=== PATIENT | female | born 1960 | race Caucasian/White ===

== ENCOUNTER 2017-10-19 07:05 | Day surgery (SDC) | payer OTHER ==
[2017-10-19] MEDS ORDERED: Lactated Ringer's 1,000 ML IV ONE (07:49)
[2017-10-19] MEDS ORDERED: Propofol 10 mg/ml Inj (20 ML) ONE (08:03)
[2017-10-19] MEDS ORDERED: Lidocaine 2% MPF (5 ml) Inj ONE (08:04)
[2017-10-19 09:11] VITALS: O2SAT 97
[2017-10-19 09:32] VITALS: BP 91/58; PULSE 71; RESP 14; TEMP 98
== END 2017-10-19 09:58 | disposition home or self-care (01) ==
LOC: H.ENDO 07:05
PROVIDERS: ATTEND Internal Medicine Gastroenterology
DX: R10.13 Epigastric pain (principal); E03.9 Hypothyroidism, unspecified; I10 Essential (primary) hypertension; K64.8 Other hemorrhoids; K44.9 Diaphragmatic hernia without obstruction or gangrene; K29.50 Unspecified chronic gastritis without bleeding; K30 Functional dyspepsia
CPT/HCPCS: 43239; 45378; 88305; J2704; J7120

== ENCOUNTER 2017-12-05 12:31 | Emergency (ER) | payer OTHER ==
[2017-12-05 12:46] VITALS: RESP 18; TEMP 99
--- NOTE | 2017-12-05 14:05 | ED PDOC ---
HPI: Chest Pain Time Seen by Provider: 12/05/17 12:48 Chief Complaint (Nursing): Chest Pain History Per: Patient History/Exam Limitations: no limitations Onset/Duration Of Symptoms: Days Current Symptoms Are (Timing): Still Present Modifying Factors: None Exacerbating Factors: Deep Breathing Additional Complaint(s): Rachell Lyon is a 57 year old female, whose past medical history includes HTN, hypercholesterolemia, anemia, and hypothyroidism, who presents to the emergency department complaining of left sided chest pain that radiates to left shoulder since 1 week. Patient reports the pain is worse with deep breathing or left shoulder movement. She notes taking Tylenol and having surgery for ovarian cyst removal and bowel. She was discharged from the hospital one month ago . Patient denies fever, cough, shortness of breath, extremity swelling, or other complaints. Past Medical History Reviewed: Historical Data, Nursing Documentation, Vital Signs Vital Signs: Last Vital Signs Temp 99.0 F 12/05/17 12:43 Pulse 102 H 12/06/17 07:12 Resp 18 12/05/17 18:57 BP 123/78 12/05/17 18:57 Pulse Ox 99 12/06/17 07:12 - Medical History PMH: Anemia, HTN, Hypercholesterolemia, Hyperthyroidism, Hypothyroidism - Surgical History Surgical History: No Surg Hx - Family History Family History: States: Unknown Family Hx - Home Medications Home Medications: Ambulatory Orders Medication Instructions Recorded Losartan [Cozaar] 1 tab PO DAILY 10/19/17 - Allergies Allergies/Adverse Reactions: Allergies Allergy/AdvReac Type Severity Reaction Status Date / Time No Known Allergies Allergy Verified 10/19/17 07:56 KIMANI Risk Score for UA/NSTEMI - KIMANI Risk Score Age > 64: NO 3 or more CAD Risk Factors: NO Known CAD (Stenosis greater than 50%): NO Aspirin use in past 7 days: NO Severe Angina: NO EKG ST changes greater than 0.5mm: NO Positive Cardiac Marker: NO KIMANI Score: 0 Risk %: 5% Wells Criteria for PE - Wells Criteria for Pulmonary Embolism Clinical Signs and Symptoms of DVT: No P.E is #1 Diagnosis, or Equally Likely: No Heart Rate >100: Yes Immobilization at least 3 days;Surgery previous 4 weeks: No Previous, objectively diagnosed PE or DVT: No Hemoptysis: No Malignancy w/treatment within 6 months, or palliative: No Total Score: 1.5 Review of Systems ROS Statement: Except As Marked, All Systems Reviewed And Found Negative Constitutional: Negative for: Fever ENT: Negative for: Throat Swelling Cardiovascular: Positive for: Chest Pain Respiratory: Negative for: Cough, Shortness of Breath Gastrointestinal: Negative for: Vomiting Genitourinary Female: Negative for: Dysuria Musculoskeletal: Positive for: Shoulder Pain (left shoulder pain) Skin: Negative for: Rash Neurological: Negative for: Numbness, Dizziness Physical Exam - Reviewed Nursing Documentation Reviewed: Yes Vital Signs Reviewed: Yes - Physical Exam Appears: Positive for: Well, Non-toxic, No Acute Distress Head Exam: Positive for: ATRAUMATIC, NORMAL INSPECTION, NORMOCEPHALIC Skin: Positive for: Normal Color, Warm, DRY Eye Exam: Positive for: EOMI, Normal appearance, PERRL Cardiovascular/Chest: Positive for: Regular Rate, Rhythm. Negative for: Chest Non Tender (chest wall tenderness on palpation ), Murmur Respiratory: Positive for: Normal Breath Sounds. Negative for: Crackles, Rales , Rhonchi Gastrointestinal/Abdominal: Positive for: Normal Exam, Bowel Sounds, Soft Extremity: Positive for: Normal ROM, Tenderness (left shoulder tenderness). 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 Differential Diagnosis included but are not limited to: ACS vs. musculoskeletal vs. pulmonary embolism vs. arthritis Plan: -- EKG -- CXR -- Labs -- Reassess and disposition Progress Notes: 190 EXAM: CT Angiography Chest With Intravenous Contrast EXAM DATE/TIME: 12/05/2017 5:15 PM CLINICAL HISTORY: 57 years old, female; Pain; Chest pain; Left-sided chest pain; Additional info: Chest pain. Sent phy. Doc. TECHNIQUE: Axial computed tomographic angiography images of the chest with intravenous contrast using pulmonary embolism protocol. All CT scans at this facility use one or more dose reduction techniques, viz.: automated exposure control; ma/kV adjustment per patient size (including targeted exams where dose is matched to indication; i.e. head); or iterative reconstruction technique. MIP reconstructed images were created and reviewed. Coronal and sagittal reformatted images were created and reviewed. CONTRAST: 80 mL of [id number] administered intravenously. COMPARISON: There are no prior studies for comparison. FINDINGS: Lungs and pleural spaces: Trachea and main bronchi are patent.There is no pneumothorax. There is a focal pleural scarring bilaterally. There is dependent atelectasis bilaterally. There is scarring at the lung bases. There is an indeterminate 1.9 mm peripheral right middle lobe nodular opacity. There is a 4.6 mm right middle lobe nodule. There is a right middle lobe granuloma. There is no lobar or segmental consolidation. There are no effusions. Heart, aorta and pulmonary arteries: Heart size is at the upper limits of normal.There is trace fluid in pericardial recesses.There is no aneurysm or dissection.There are vascular calcifications. There are no pulmonary emboli. Mediastinum: The esophagus is unremarkable. There are no pathologically enlarged mediastinal or hilar nodes. Thyroid: Thyroid is not optimally demonstrated. Bones/joints: There are no acute osseous abnormalities. There is minimal spondylosis. Soft tissues: unremarkable Upper abdomen: There are no acute abnormalities in the visualized portion of the abdomen.There are multiple low attenuation lesions in the liver. Largest are consistent with cysts. Smaller lesions are too small to characterize. IMPRESSION: No aneurysm, dissection or pulmonary embolus, no focal pneumonia; prior granulomatous disease; indeterminate right middle lobe nodules Pulmonary nodules: For low-risk patients, no follow-up is necessary. For high- risk patients (smoking history or other known risk factors) an optional chest CT at 12 months could be performed. Scribe Attestation: Documented by Suri Maurer Attestation: All medical record entries made by the [employer] were at my direction and personally dictated by me. I have reviewed the chart and agree that the record accurately reflects my personal performance of the history, physical exam, medical decision making, and the department course for this patient. I have also personally directed, reviewed, and agree with the discharge instructions and disposition. Disposition - Clinical Impression Clinical Impression: Chest pain, Shoulder pain, Pulmonary nodule - Patient ED Disposition Is Patient to be Admitted: No Doctor Will See Patient In The: Office Counseled Patient/Family Regarding: Studies Performed, Diagnosis, Need For Followup - Disposition Referrals: [facility] [Outside] Disposition: Routine/Home Disposition Time: 19:00 Condition: GOOD Additional Instructions: Follow up with your PCP in 2-3 days. Return for worsening. Take motrin for pain. Instructions: Chest Pain, Pulmonary Nodule Print Language: GIBRALTARIAN
[2017-12-05 14:06] LABS: BASO % 0.9 % (0.0-2.0); EOS % 1.1 % (0.0-4.0); HEMOGLOBIN 10.9 g/dL (12.0-16.0); LYMPH # 1.1 K/uL (1.0-4.3); LYMPH % 27.2 % (20.0-40.0); MEAN CELL VOLUME 79.7 fl (81.0-99.0); MEAN CORPUSCULAR HEMOGLOBIN 25.4 pg (27.0-31.0); MEAN CORPUSCULAR HGB CONC 31.9 g/dL (33.0-37.0); MEAN PLATELET VOLUME 7.7 fl (7.2-11.7); MONO # 0.4 K/uL (0.0-0.8); MONO % 11.2 % (0.0-10.0); NEUT # 2.4 K/uL (1.8-7.0); NEUT % 59.6 % (50.0-75.0); NRBC % 0.4 % (0.0-0.0); RBC 4.3 Mil/uL (3.80-5.20); RED CELL DISTRIBUTION WIDTH 15.6 % (11.5-14.5)
[2017-12-05 14:15] LABS: CALCIUM 9.3 mg/dL (8.4-10.2); GFR AFRICAN-AMERICAN > 60; GFR NON-AFRICAN AMERICAN > 60
[2017-12-05 14:18] LABS: PARTIAL THROMBOPLASTIN TIME 27.1 Seconds (25.6-37.1); PROTHROMBIN TIME 11.2 Seconds (9.8-13.1)
[2017-12-05 14:27] LABS: BLOOD UREA NITROGEN 15 mg/dl (7-17)
[2017-12-05] MEDS ORDERED: Iodixanol 320 MG/ML 100 ML BOTTLE IV ONE (17:38)
[2017-12-05] MEDS ORDERED: Sodium Chloride 0.9% 100 ML ONE (17:38)
--- NOTE | 2017-12-05 17:44 | RAD ---
HISTORY: chest pain COMPARISON: No prior. TECHNIQUE: Chest PA and lateral FINDINGS: LUNGS: No active pulmonary disease. PLEURA: No significant pleural effusion identified. No pneumothorax apparent. CARDIOVASCULAR: Upper limits normal cardiac silhouette. No pulmonary derangement identified. OSSEOUS STRUCTURES: No significant abnormalities. VISUALIZED UPPER ABDOMEN: Normal. OTHER FINDINGS: None. IMPRESSION: Upper limits normal cardiac size. No pulmonary vascular derangement. No acute infiltrate, pleural effusion or pneumothorax identified.
[2017-12-05 18:58] VITALS: BP 123/78
--- NOTE | 2017-12-05 19:09 | CT ---
EXAM: CT Angiography Chest With Intravenous Contrast EXAM DATE/TIME: 12/05/2017 5:15 PM CLINICAL HISTORY: 57 years old, female; Pain; Chest pain; Left-sided chest pain; Additional info: Chest pain. Sent phy. Doc. TECHNIQUE: Axial computed tomographic angiography images of the chest with intravenous contrast using pulmonary embolism protocol. All CT scans at this facility use one or more dose reduction techniques, viz.: automated exposure control; ma/kV adjustment per patient size (including targeted exams where dose is matched to indication; i.e. head); or iterative reconstruction technique. MIP reconstructed images were created and reviewed. Coronal and sagittal reformatted images were created and reviewed. CONTRAST: 80 mL of administered intravenously. COMPARISON: There are no prior studies for comparison. FINDINGS: Lungs and pleural spaces: Trachea and main bronchi are patent.There is no pneumothorax. There is a focal pleural scarring bilaterally. There is dependent atelectasis bilaterally. There is scarring at the lung bases. There is an indeterminate 1.9 mm peripheral right middle lobe nodular opacity. There is a 4.6 mm right middle lobe nodule. There is a right middle lobe granuloma. There is no lobar or segmental consolidation. There are no effusions. Heart, aorta and pulmonary arteries: Heart size is at the upper limits of normal.There is trace fluid in pericardial recesses.There is no aneurysm or dissection.There are vascular calcifications. There are no pulmonary emboli. Mediastinum: The esophagus is unremarkable. There are no pathologically enlarged mediastinal or hilar nodes. Thyroid: Thyroid is not optimally demonstrated. Bones/joints: There are no acute osseous abnormalities. There is minimal spondylosis. Soft tissues: unremarkable Upper abdomen: There are no acute abnormalities in the visualized portion of the abdomen.There are multiple low attenuation lesions in the liver. Largest are consistent with cysts. Smaller lesions are too small to characterize. IMPRESSION: No aneurysm, dissection or pulmonary embolus, no focal pneumonia; prior granulomatous disease; indeterminate right middle lobe nodules Pulmonary nodules: For low-risk patients, no follow-up is necessary. For high-risk patients (smoking history or other known risk factors) an optional chest CT at 12 months could be performed.
[2017-12-05 19:13] VITALS: PULSE 102; O2SAT 99
--- NOTE | 2017-12-06 14:55 | CARD ---
APPROVED REPORT EKG Measurement Heart [id number] <Conclusion> Sinus tachycardia Nonspecific ST and T wave abnormality Abnormal ECG
== END 2017-12-05 19:20 | disposition home or self-care (01) ==
LOC: H.ER 12:31
DX: R07.89 Other chest pain (principal); M25.512 Pain in left shoulder; D64.9 Anemia, unspecified; E03.9 Hypothyroidism, unspecified; E05.90 Thyrotoxicosis, unspecified without thyrotoxic crisis or storm; E78.00 Pure hypercholesterolemia, unspecified; I10 Essential (primary) hypertension
CPT/HCPCS: 71046; 71275; 80048; 84484; 85025; 85378; 85610; 85730; 93005; 99285; Q9967

== ENCOUNTER 2018-01-05 12:20 | Emergency (ER) | payer OTHER ==
[2018-01-05 12:41] VITALS: RESP 18; TEMP 98; O2SAT 98
--- NOTE | 2018-01-05 15:50 | ED PDOC ---
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 Pt had laser ovarian cyst removal on 10/29/17 and iatrogenic perforation of bowel with subsequent bowel anastomosis. Denies fever, nausea, vomiting, constipation, diarrhea. Last BM this AM. Past Medical History Reviewed: Nursing Documentation, Vital Signs Vital Signs: Last Vital Signs Temp 98 F 01/05/18 12:37 Pulse 92 H 01/05/18 12:37 Resp 18 01/05/18 12:37 BP 137/80 01/05/18 12:37 Pulse Ox 98 01/05/18 12:37 - Medical History PMH: Anemia, HTN, Hypercholesterolemia, Hyperthyroidism, Hypothyroidism - Surgical History Other surgeries: Ovarian cyst removel, bowel anastomosis - Family History Family History: States: Unknown Family Hx - Social History Current smoker - smoking cessation education provided: No Alcohol: None - Home Medications Home Medications: Ambulatory Orders Medication Instructions Recorded Losartan [Cozaar] 1 tab PO DAILY 10/19/17 - Allergies Allergies/Adverse Reactions: Allergies Allergy/AdvReac Type Severity Reaction Status Date / Time No Known Allergies Allergy Verified 10/19/17 07:56 Review of Systems Constitutional: Negative for: Fever, Chills Cardiovascular: Negative for: Chest Pain, Palpitations Respiratory: Negative for: Cough, Shortness of Breath Gastrointestinal: Positive for: Abdominal Pain. Negative for: Nausea, Vomiting , Diarrhea, Hematochezia, Hematemesis Genitourinary Female: Negative for: Dysuria, Hematuria, Vaginal Discharge, Vaginal Bleeding Musculoskeletal: Negative for: Neck Pain, Back Pain Skin: Negative for: Rash, Lesions Neurological: Negative for: Headache Physical Exam - Reviewed Nursing Documentation Reviewed: Yes Vital Signs Reviewed: Yes - Physical Exam Appears: Positive for: Well, No Acute Distress Head Exam: Positive for: ATRAUMATIC, NORMAL INSPECTION Skin: Positive for: Normal Color, Warm, Dry Eye Exam: Positive for: Normal appearance, EOMI, PERRL Cardiovascular/Chest: Positive for: Regular Rate, Rhythm Respiratory: Positive for: Normal Breath Sounds Gastrointestinal/Abdominal: Positive for: Bowel Sounds, Soft, Tenderness ( Supraumbilical tenderness, vertical incision C/D/I). Negative for: Distended, Guarding, Rebound Back: Positive for: Normal Inspection. Negative for: L CVA Tenderness, R CVA Tenderness Extremity: Positive for: Normal ROM Neurologic/Psych: Positive for: Alert, Oriented - ECG O2 Sat by Pulse Oximetry: 98 Medical Decision Making Medical Decision Makin yo female with abdominal pain. - labs - EKG - CT abd/pelvis - Morphine Disposition - Disposition
[2018-01-05 16:20] LABS: BASO % 0.6 % (0.0-2.0); HEMOGLOBIN 11.7 g/dL (12.0-16.0); LYMPH # 1.6 K/uL (1.0-4.3); LYMPH % 36.6 % (20.0-40.0); MEAN CELL VOLUME 79.5 fl (81.0-99.0); MEAN CORPUSCULAR HEMOGLOBIN 25.8 pg (27.0-31.0); MEAN CORPUSCULAR HGB CONC 32.5 g/dL (33.0-37.0); MEAN PLATELET VOLUME 7.7 fl (7.2-11.7); MONO # 0.4 K/uL (0.0-0.8); MONO % 7.8 % (0.0-10.0); NEUT # 2.4 K/uL (1.8-7.0); NRBC % 0.3 % (0.0-0.0); RBC 4.52 Mil/uL (3.80-5.20); RED CELL DISTRIBUTION WIDTH 15.9 % (11.5-14.5); WHITE BLOOD COUNT 4.5 K/uL (4.8-10.8)
[2018-01-05 16:30] LABS: ALBUMIN 4.1 g/dL (3.5-5.0); ALT/SGPT 39 U/L (9-52); AST/SGOT 33 U/L (14-36); BLOOD UREA NITROGEN 11 mg/dl (7-17); CALCIUM 9.5 mg/dL (8.4-10.2); GFR AFRICAN-AMERICAN > 60; GFR NON-AFRICAN AMERICAN > 60; LIPASE 106 U/L (23-300)
[2018-01-05] MEDS ORDERED: Sodium Chloride 0.9% 100 ML ONE (16:41)
[2018-01-05] MEDS ORDERED: Iohexol 300 100 ML IJ ONE (16:41)
[2018-01-05 17:00] LABS: URINE BILIRUBIN NEGATIVE (NEGATIVE); URINE BLOOD NEGATIVE (NEGATIVE); URINE CLARITY CLEAR (Clear); URINE COLOR STRAW (YELLOW); URINE GLUCOSE (UA) NEG (Normal); URINE LEUKOCYTE ESTERASE NEG Leu/uL (Negative); URINE PROTEIN NEGATIVE (NEGATIVE); URINE UROBILINOGEN 0.2-1.0 mg/dL (0.2-1.0)
--- NOTE | 2018-01-05 17:07 | ED PDOC ---
- Laboratory Results Result Diagrams: 01/05/18 16:15 01/05/18 16:15 - ECG O2 Sat by Pulse Oximetry: 98 (RA) Pulse Ox Interpretation: Normal Medical Decision Making Medical Decision Making: Time: 17:00 Patient was signed out to me by Dr. Ziegler, pending CT Absomen/Pelvis and labs. 17:38 CT Abdomen/Pelvis: FINDINGS: LOWER THORAX: Fibrotic changes again seen the left base with images stable compared to prior enhanced chest CT 12/05/2017. LIVER: Multiple scattered lucencies are stable throughout the liver without prominent enhancement. The majority are likely marketing sales representative of cysts however other numerous foci too small to characterize. GALLBLADDER AND BILE DUCTS: Unremarkable. PANCREAS: Unremarkable. No gross lesion or ductal dilatation. SPLEEN: Unremarkable. ADRENALS: Unremarkable. No mass. KIDNEYS AND URETERS: Unremarkable. No hydronephrosis. No solid mass. VASCULATURE: Unremarkable. No aortic aneurysm. BOWEL: Stomach is distended with mild volume of fluid there is no bowel obstruction. Postop changes in the right lower quadrant abdomen status post segmental distal small-bowel resection. Local postop changes may be present here. There is a small thick-walled structure which may represent a segment small bowel however appears tendon a blind loop. It measures 4.0 x 1.8 cm in its superior anterior to the anastomotic site from the prior surgery. A small abscess here is not excluded however if the prior surgery was in the distant past than this may represents an inflamed small bowel segment. There are additional small bowel loops with thickened wall seen in the left lower quadrant in segmental enteritis is questioned. Clinically correlate further. No free intraperitoneal gas or ascites. APPENDIX: Not identified. PERITONEUM: Unremarkable. No free fluid. No free air. LYMPH NODES: Unremarkable. No enlarged lymph nodes. BLADDER: Unremarkable. REPRODUCTIVE: UnremarkableA 3.3 x 2.2 cm right adnexal cyst is identified. . BONES: No acute fracture. OTHER FINDINGS: Tiny umbilical hernia containing only fat. No reactive changes are associated with the fat. IMPRESSION: Findings most compatible with poor likely segmental enteritis affecting small- bowel loops primarily at the left lower quadrant. Pain status post prior segmental small bowel resection at the right lower quadrant with a small abscess or possible infected blind loop appreciated enter superior to the anastomotic site. Local reactive changes or postoperative changes identified at the operative site. Clinically correlate as to the timing of the surgery with the more distant surgery likely reflecting reflected blind loop rather than abscess. Other lesser findings as discussed above. I spoke with radiologist who read this report of CT scan and believes that its post surgical changes, nothing acute other than enteritis. pt given cipor and flagyl rx and stable for dc. pt currently feels better, in no distress. stable for dc and outpt follow up. pt agreeablet o plan. Scribe Attestation: Documented by Emperatriz Fuller acting as a scribe for Ceci Carmona MD. Scribe Attestation: All medical record entries made by the Scribe were at my direction and personally dictated by me. I have reviewed the chart and agree that the record accurately reflects my personal performance of the history, physical exam, medical decision making, and the department course for this patient. I have also personally directed, reviewed, and agree with the discharge instructions and disposition. Disposition Counseled Patient/Family Regarding: Studies Performed, Diagnosis, Need For Followup - Clinical Impression Clinical Impression: Abdominal pain, Enteritis - POA Present On Arrival: None - Disposition Referrals: [facility] [Outside] [facility] [Outside] Disposition: Routine/Home Disposition Time: 17:25 Condition: IMPROVED Additional Instructions: follow up with your primary surgeon in 1-2 days for reevaluation return to the ED with any worsening or concerning symptoms Prescriptions: Ciprofloxacin HCl [Cipro] 500 mg PO BID #20 tab Metronidazole [Flagyl] 500 mg PO TID #30 tablet Instructions: Acute Abdomen (Belly Pain), Adult (DC) Forms: [employer] (Arabic) Print Language: MALTESE
[2018-01-05 17:19] LABS: PARTIAL THROMBOPLASTIN TIME 28.9 Seconds (25.6-37.1); PROTHROMBIN TIME 10.8 Seconds (9.8-13.1)
--- NOTE | 2018-01-05 17:39 | CT ---
PROCEDURE: CT Abdomen and Pelvis with contrast HISTORY: Supraumbilical pain COMPARISON: None. TECHNIQUE: Contrast dose: Omnipaque 300, 90 cc Radiation dose: Total exam DLP = 602.27 mGy-cm. This CT exam was performed using one or more of the following dose reduction techniques: Automated exposure control, adjustment of the mA and/or kV according to patient size, and/or use of iterative reconstruction technique. FINDINGS: LOWER THORAX: Fibrotic changes again seen the left base with images stable compared to prior enhanced chest CT 12/05/2017. LIVER: Multiple scattered lucencies are stable throughout the liver without prominent enhancement. The majority are likely floor representative of cysts however other numerous foci too small to characterize. GALLBLADDER AND BILE DUCTS: Unremarkable. PANCREAS: Unremarkable. No gross lesion or ductal dilatation. SPLEEN: Unremarkable. ADRENALS: Unremarkable. No mass. KIDNEYS AND URETERS: Unremarkable. No hydronephrosis. No solid mass. VASCULATURE: Unremarkable. No aortic aneurysm. BOWEL: Stomach is distended with mild volume of fluid there is no bowel obstruction. Postop changes in the right lower quadrant abdomen status post segmental distal small-bowel resection. Local postop changes may be present here. There is a small thick-walled structure which may represent a segment small bowel however appears tendon a blind loop. It measures 4.0 x 1.8 cm in its superior anterior to the anastomotic site from the prior surgery. A small abscess here is not excluded however if the prior surgery was in the distant past than this may represents an inflamed small bowel segment. There are additional small bowel loops with thickened wall seen in the left lower quadrant in segmental enteritis is questioned. Clinically correlate further. No free intraperitoneal gas or ascites. APPENDIX: Not identified. PERITONEUM: Unremarkable. No free fluid. No free air. LYMPH NODES: Unremarkable. No enlarged lymph nodes. BLADDER: Unremarkable. REPRODUCTIVE: UnremarkableA 3.3 x 2.2 cm right adnexal cyst is identified. . BONES: No acute fracture. OTHER FINDINGS: Tiny umbilical hernia containing only fat. No reactive changes are associated with the fat. IMPRESSION: Findings most compatible with poor likely segmental enteritis affecting small-bowel loops primarily at the left lower quadrant. Pain status post prior segmental small bowel resection at the right lower quadrant with a small abscess or possible infected blind loop appreciated enter superior to the anastomotic site. Local reactive changes or postoperative changes identified at the operative site. Clinically correlate as to the timing of the surgery with the more distant surgery likely reflecting reflected blind loop rather than abscess. Other lesser findings as discussed above.
[2018-01-05 19:27] VITALS: BP 125/86; PULSE 78
--- NOTE | 2018-01-06 19:44 | CARD ---
APPROVED REPORT EKG Measurement Heart [id number] <Conclusion> Normal sinus rhythm Normal ECG
== END 2018-01-05 19:10 | disposition home or self-care (01) ==
LOC: H.ER 12:20
DX: K52.9 Noninfective gastroenteritis and colitis, unspecified (principal); R10.9 Unspecified abdominal pain; E05.90 Thyrotoxicosis, unspecified without thyrotoxic crisis or storm; I10 Essential (primary) hypertension; E78.00 Pure hypercholesterolemia, unspecified; E03.9 Hypothyroidism, unspecified
CPT/HCPCS: 74177; 80053; 81003; 83690; 85025; 85610; 85730; 93005; 99284; Q9967

== ENCOUNTER 2018-02-12 19:16 | Inpatient (IN) | payer OTHER ==
[2018-02-12] MEDS ORDERED: Iohexol 240 (50 ml) PO ONE (20:58)
[2018-02-12 21:25] LABS: BASO % 0.4 % (0.0-2.0); EOS % 0.1 % (0.0-4.0); HEMOGLOBIN 13.2 g/dL (12.0-16.0); LYMPH # 0.9 K/uL (1.0-4.3); LYMPH % 11.7 % (20.0-40.0); MEAN CELL VOLUME 78.8 fl (81.0-99.0); MEAN CORPUSCULAR HEMOGLOBIN 25.5 pg (27.0-31.0); MEAN CORPUSCULAR HGB CONC 32.3 g/dL (33.0-37.0); MEAN PLATELET VOLUME 8.1 fl (7.2-11.7); MONO # 0.3 K/uL (0.0-0.8); MONO % 3.6 % (0.0-10.0); NEUT # 6.8 K/uL (1.8-7.0); NEUT % 84.2 % (50.0-75.0); RBC 5.19 Mil/uL (3.80-5.20); RED CELL DISTRIBUTION WIDTH 14.8 % (11.5-14.5); WHITE BLOOD COUNT 8.1 K/uL (4.8-10.8)
[2018-02-12 21:42] LABS: ALB/GLOB RATIO 1.1 (1.0-2.1); ALBUMIN 4.5 g/dL (3.5-5.0); ALT/SGPT 53 U/L (9-52); AST/SGOT 35 U/L (14-36); BLOOD UREA NITROGEN 13 mg/dl (7-17); CALCIUM 9.1 mg/dL (8.4-10.2); GFR AFRICAN-AMERICAN > 60; GFR NON-AFRICAN AMERICAN > 60; LIPASE 60 U/L (23-300)
[2018-02-12] MEDS ORDERED: Sodium Chloride 0.9% 1,000 ML IV STA (21:44)
--- NOTE | 2018-02-12 21:47 | ED PDOC ---
HPI: Abdomen Time Seen by Provider: 02/12/18 20:09 Chief Complaint (Nursing): Abdominal Pain Chief Complaint (Provider): Abdominal Pain History Per: Patient History/Exam Limitations: no limitations Onset/Duration Of Symptoms: Other (x1 week) Current Symptoms Are (Timing): Still Present Location Of Pain/Discomfort: Epigastric Quality Of Discomfort: Other (severe and untollerable) Associated Symptoms: denies: Nausea, Vomiting, Diarrhea Additional Complaint(s): 57 year old female, with past medical history of hypertension, presented to ED with complaints of severe, intolerable, and constant abdominal epigastric pain throughout the day. The discomfort began 1 week ago. Patient denies nausea, vomiting, diarrhea, fever, and urinary problems. She had difficulty passing gas but was able to pass gas this morning. Of note, patient had ovarian cyst removed but developed perforated bowel. Due to this, she had a second surgery where a bowel resection and intestinal and bowel anastomosis was performed all at [facility]. PCP: Patsy Gillespie Past Medical History Reviewed: Historical Data, Nursing Documentation, Vital Signs Vital Signs: Last Vital Signs Temp 99.3 F 02/13/18 17:18 Pulse 111 H 02/13/18 17:18 Resp 20 02/13/18 17:18 BP 114/71 02/13/18 17:18 Pulse Ox 98 02/13/18 20:07 - Medical History PMH: Anemia, HTN, Hypercholesterolemia, Hyperthyroidism, Hypothyroidism - Surgical History Other surgeries: Ovarian cyst removed, bowel resection, and intestinal and bowel anastomosis. - Family History Family History: States: Unknown Family Hx - Social History Current smoker - smoking cessation education provided: No Alcohol: None Drugs: Denies - Home Medications Home Medications: Ambulatory Orders Medication Instructions Recorded Levothyroxine [Synthroid] 88 mcg PO DAILY 02/13/18 Losartan [Cozaar] 25 mg PO DAILY 02/13/18 Pravastatin Sodium [Pravachol] 40 mg PO DAILY 02/13/18 - Allergies Allergies/Adverse Reactions: Allergies Allergy/AdvReac Type Severity Reaction Status Date / Time No Known Allergies Allergy Verified 02/12/18 19:46 Review of Systems ROS Statement: Except As Marked, All Systems Reviewed And Found Negative Constitutional: Negative for: Fever Gastrointestinal: Positive for: Abdominal Pain (epigastric), Other (Difficulty passing gas). Negative for: Nausea, Vomiting, Diarrhea Genitourinary Female: Negative for: Dysuria (no urinary problems) Physical Exam - Reviewed Nursing Documentation Reviewed: Yes Vital Signs Reviewed: Yes - Physical Exam Appears: Positive for: Non-toxic, No Acute Distress, Uncomfortable Head Exam: Positive for: ATRAUMATIC, NORMAL INSPECTION, NORMOCEPHALIC Skin: Positive for: Normal Color, Warm, Dry Eye Exam: Positive for: Normal appearance, EOMI, PERRL ENT: Positive for: Normal ENT Inspection Neck: Positive for: Normal, Painless ROM Cardiovascular/Chest: Positive for: Regular Rate, Rhythm. Negative for: Murmur Respiratory: Positive for: Normal Breath Sounds. Negative for: Wheezing, Respiratory Distress Gastrointestinal/Abdominal: Positive for: Tenderness (epigastric), Other ( midline scar). Negative for: Distended, Rebound Back: Positive for: Normal Inspection. Negative for: L CVA Tenderness, R CVA Tenderness, Vertebral Tenderness Extremity: Positive for: Normal ROM (upper/lower) Neurologic/Psych: Positive for: Alert, Oriented. Negative for: Motor/Sensory Deficits - Laboratory Results Result Diagrams: 02/13/18 06:00 02/13/18 06:00 - ECG O2 Sat by Pulse Oximetry: 98 (RA) Pulse Ox Interpretation: Normal Medical Decision Making Medical Decision Making: Initial Impression: Abdominal pain Differential: Abdominal surgery, cholecystitis, appendicitis, small bowel obstruction, pancreatitis Initial plan CT abd/pelvis CMP Lipase ED urine dipstick CBC Morphine Sodium chloride 1000mL IV Iohexol 50mL PO Ondansetron 4mg IV Ondansetron 4mg PO Time: 01:17 CT abd/pelvis with IV contrast FINDINGS: Lower thorax: Heart size is normal. There is a small hiatal hernia. There is scarring at the lung bases, unchanged. ABDOMEN: Liver: There is fatty infiltration of liver. There multiple small hepatic cysts , unchanged. Gallbladder and bile ducts: unremarkable Pancreas: unremarkable Spleen: unremarkable Adrenals: unremarkable Kidneys and ureters: unremarkable Stomach and bowel: Stomach is distended with contrast and air. Rotation is normal. The small bowel is dilated. There are air-fluid levels in the small bowel. There are fecalized distal ilial loops in the right lower quadrant. There is an enteral anastomosis in the right lower quadrant. There is transition at the suture line. Distal/terminal ileum is decompressed. Appendix is not visualized. There is no pericecal inflammation.Colon is incompletely distended which limits evaluation. There is scattered diverticulosis PELVIS: Appendix: See stomach and bowel Bladder: unremarkable Reproductive: Uterus is absent. There left adnexa is unremarkable. There is continued prominence of the right adnexa with small cysts. ABDOMEN and PELVIS: Intraperitoneal space: There is no free air. There is minimal free fluid in the right lower quadrant. Bones/joints: There are no acute osseous abnormalities. There is L3-L4 fusion, unchanged. There are laminectomy defects. Soft tissues: There is rectus diastases. Vasculature: There are vascular calcifications. Lymph nodes: There is no pathologic adenopathy. IMPRESSION: Small bowel obstruction with transition at the enteral anastomotic site in the right lower quadrant; no acute solid visceral abnormality; prominence of the right adnexa with small cysts, similar finding seen on the prior study [address] Peña surgical sales representative and consult requested for Dr De Jesus. NG tube placed. NPO. IVF. Scribe Attestation: Documented by Remy Duckworth acting as a scribe for Padmini Elam MD. Provider Scribe Attestation: All medical record entries made by the Scribe were at my direction and personally dictated by me. I have reviewed the chart and agree that the record accurately reflects my personal performance of the history, physical exam, medical decision making, and the department course for this patient. I have also personally directed, reviewed, and agree with the discharge instructions and disposition. Disposition - Clinical Impression Clinical Impression: SBO (small bowel obstruction) - Patient ED Disposition Is Patient to be Admitted: Yes Discussed With : Sal Salazar Doctor Will See Patient In The: Hospital Counseled Patient/Family Regarding: Studies Performed, Diagnosis - Disposition Disposition Time: 02:00 Condition: FAIR - Pt Status Changed To: Hospital Disposition Of: Inpatient - Admit Certification Admit to Inpatient:: After my assessment, the patient will require hospitalization for at least two midnights. This is because of the severity of symptoms shown, intensity of services needed, and/or the medical risk in this patient being treated as an outpatient. - POA Present On Arrival: None
[2018-02-12] MEDS ORDERED: Iohexol 240 (50 ml) ONE (22:13)
[2018-02-12] MEDS ORDERED: Iohexol 300 100 ML IJ ONE (23:50)
[2018-02-12] MEDS ORDERED: Sodium Chloride 0.9% 100 ML ONE (23:50)
--- NOTE | 2018-02-13 01:17 | CT ---
EXAM: CT Abdomen and Pelvis With Intravenous Contrast EXAM DATE/TIME: 02/12/2018 8:59 PM CLINICAL HISTORY: 57 years old, female; Pain; Abdominal pain; Epigastric; Prior surgery; Surgery date: 1-6 months; Surgery type: Perforated bowel. And secondary bowel resection; Additional info: Abdominal pain HX of exlap bowel anastomosis TECHNIQUE: Axial computed tomography images of the abdomen and pelvis with intravenous contrast. All CT scans at this facility use one or more dose reduction techniques, viz.: automated exposure control; ma/kV adjustment per patient size (including targeted exams where dose is matched to indication; i.e. head); or iterative reconstruction technique. Coronal and sagittal reformatted images were created and reviewed. CONTRAST: 90 mL of administered intravenously. COMPARISON: CT - ABD PELVIS IV CONTRAST ONLY 2018-01-05 16:55 FINDINGS: Lower thorax: Heart size is normal. There is a small hiatal hernia. There is scarring at the lung bases, unchanged. ABDOMEN: Liver: There is fatty infiltration of liver. There multiple small hepatic cysts, unchanged. Gallbladder and bile ducts: unremarkable Pancreas: unremarkable Spleen: unremarkable Adrenals: unremarkable Kidneys and ureters: unremarkable Stomach and bowel: Stomach is distended with contrast and air. Rotation is normal. The small bowel is dilated. There are air-fluid levels in the small bowel. There are fecalized distal ilial loops in the right lower quadrant. There is an enteral anastomosis in the right lower quadrant. There is transition at the suture line. Distal/terminal ileum is decompressed. Appendix is not visualized. There is no pericecal inflammation.Colon is incompletely distended which limits evaluation. There is scattered diverticulosis PELVIS: Appendix: See stomach and bowel Bladder: unremarkable Reproductive: Uterus is absent. There left adnexa is unremarkable. There is continued prominence of the right adnexa with small cysts. ABDOMEN and PELVIS: Intraperitoneal space: There is no free air. There is minimal free fluid in the right lower quadrant. Bones/joints: There are no acute osseous abnormalities. There is L3-L4 fusion, unchanged. There are laminectomy defects. Soft tissues: There is rectus diastases. Vasculature: There are vascular calcifications. Lymph nodes: There is no pathologic adenopathy. IMPRESSION: Small bowel obstruction with transition at the enteral anastomotic site in the right lower quadrant; no acute solid visceral abnormality; prominence of the right adnexa with small cysts, similar finding seen on the prior study Additional nonemergent findings as described above.
[2018-02-13] MEDS ORDERED: Sodium Chloride 0.9% 1,000 ML IV SCH (03:00)
--- NOTE | 2018-02-13 03:14 | CP.PCM.CON ---
<Giuliano Peña - Last Filed: 02/13/18 03:10> History of Present Illness - History of Present Illness History of Present Illness: General Surgery Consult CC: abdominal pain HPI: 57F presented to ED with epigastric abd pain x 1 week with severe worsening of the pain 02/12/18. Pain is constant. Denied nausea, vomiting, diarrhea, fever, chills and urinary problems. Had one bout of emesis of partially digested food after NGT placement. Reports having similar pain in December and was given abx. Last BM yesterday was non bloody and normal. Pt had ovarian cyst removed (10/29/17) but developed perforated bowel which required small bowel resection by Dr. Almeida at [facility]. PMH: HTN, HLD, Hypothyroid, Anemia PSH: Ovarian cyst removal, ex lap with SBR SH: No tobacco, EtOH, or drug use FH: Noncontributory All: NKDA Meds: See MAR Review of Systems - Review of Systems All systems: reviewed and no additional remarkable complaints except (as per hpi ) Past Patient History - Past Medical History & Family History Past Medical History?: Yes - Past Social History Alcohol: None Drugs: Denies - CARDIAC Hx Hypercholesterolemia: Yes Hx Hypertension: Yes - ENDOCRINE/METABOLIC Hx Hyperthyroidism: Yes Hx Hypothyroidism: Yes - HEMATOLOGICAL/ONCOLOGICAL Hx Anemia: Yes - PSYCHIATRIC Hx Substance Use: No - SURGICAL HISTORY Hx Surgeries: Yes Hx Hysterectomy: Yes Other/Comment: OVarian cyst removal, small intestine surgery. - ANESTHESIA Hx Anesthesia: Yes Hx Anesthesia Reactions: No Hx Malignant Hyperthermia: No Meds Allergies/Adverse Reactions: Allergies Allergy/AdvReac Type Severity Reaction Status Date / Time No Known Allergies Allergy Verified 02/12/18 19:46 - Medications Medications: Current Medications Sodium Chloride (Sodium Chloride 0.9%) 1,000 mls @ 105 mls/hr IV .Q9H32M [facility] Morphine Sulfate (Morphine) 4 mg IVP Q4H PRN PRN Reason: Pain, moderate (4-7) Ondansetron HCl (Zofran Odt) 4 mg PO Q4H PRN PRN Reason: Nausea/Vomiting Physical Exam - Constitutional Appears: Non-toxic, No Acute Distress - Head Exam Head Exam: ATRAUMATIC, NORMOCEPHALIC - Eye Exam Eye Exam: EOMI. absent: Scleral icterus - ENT Exam ENT Exam: Mucous Membranes Moist Additional comments: NGT in place trachea midline - Neck Exam Neck exam: Positive for: Full Rom - Respiratory Exam Respiratory Exam: NORMAL BREATHING PATTERN. absent: Respiratory Distress - Cardiovascular Exam Cardiovascular Exam: RRR - GI/Abdominal Exam GI & Abdominal Exam: Guarding, Soft, Tenderness (most in epigastrum). absent: Distended, Firm, Rebound, Rigid Additional comments: old surgical scar healing well - Rectal Exam Rectal Exam: Deferred - Extremities Exam Extremities exam: Positive for: pedal pulses present. Negative for: calf tenderness, pedal edema - Back Exam Back exam: absent: CVA tenderness (L), CVA tenderness (R) - Neurological Exam Neurological exam: Alert, Oriented x3 - Skin Skin Exam: Dry, Warm Results - Vital Signs Recent Vital Signs: Last Vital Signs Temp 98 F 02/13/18 01:45 Pulse 90 02/13/18 01:45 Resp 17 02/13/18 01:45 BP 132/87 02/13/18 01:45 Pulse Ox 98 02/13/18 01:45 - Labs Result Diagrams: 02/12/18 21:00 02/12/18 21:00 Labs: Laboratory Results - last 24 hr 02/12/18 02/12/18 21:00 21:00 WBC 8.1 D RBC 5.19 Hgb 13.2 Hct 40.9 MCV 78.8 L MCH 25.5 L MCHC 32.3 L RDW 14.8 H Plt Count 286 MPV 8.1 Neut % (Auto) 84.2 H Lymph % (Auto) 11.7 L [place] % (Auto) 3.6 Eos % (Auto) 0.1 Baso % (Auto) 0.4 Neut # (Auto) 6.8 Lymph # (Auto) 0.9 L [place] # (Auto) 0.3 Eos # (Auto) 0.0 Baso # (Auto) 0.0 Sodium 140 Potassium 4.2 Chloride 102 Carbon Dioxide 23 Anion Gap 19 BUN 13 Creatinine 0.5 L Est GFR ( Amer) > 60 Est GFR (Non-Af Amer) > 60 Random Glucose 116 H Calcium 9.1 Total Bilirubin 1.7 H AST 35 ALT 53 H D Alkaline Phosphatase 93 Total Protein 8.6 H Albumin 4.5 Globulin 4.1 H Albumin/Globulin Ratio 1.1 Lipase 60 - Imaging and Cardiology CT scan - abdomen Status: Image reviewed by me, Report reviewed by me Assessment & Plan - Assessment and Plan (Free Text) Assessment: 57F with SBO likely secondary to adhesions Plan: NPO NGT placed in ER Analgesia PRN Zofran IVF Monitor for bowel function Serial Abd exams AM labs D/W Dr. Liza Peña PGY4 <Anthony De Jesus - Last Filed: 02/13/18 15:20> History of Present Illness - History of Present Illness History of Present Illness: Patient was seen and examined at the bedside. Agree with resident's note above. Meds - Medications Medications: Current Medications Dextrose/Sodium Chloride (Dextrose 5%/0.9% Ns 1000 Ml) 1,000 mls @ 100 mls/hr IV .Q10H JERROD Stop: 02/14/18 07:53 Last Admin: 02/13/18 08:46 Dose: 100 mls/hr Morphine Sulfate (Morphine) 4 mg IVP Q4H PRN PRN Reason: Pain, moderate (4-7) Last Admin: 02/13/18 13:45 Dose: 4 mg Ondansetron HCl (Zofran Odt) 4 mg PO Q4H PRN PRN Reason: Nausea/Vomiting Physical Exam - GI/Abdominal Exam Additional comments: soft, mildly tender in the epigastrium, ND, BS+, no rebound, no guarding, well healed scar from prior Laparotomy Results - Vital Signs Recent Vital Signs: Last Vital Signs Temp 99.5 F 02/13/18 08:26 Pulse 111 H 02/13/18 08:26 Resp 20 02/13/18 08:26 BP 155/96 H 02/13/18 08:26 Pulse Ox 97 02/13/18 08:26 - Labs Result Diagrams: 02/13/18 06:00 02/13/18 06:00 Labs: Laboratory Results - last 24 hr 02/12/18 02/12/18 02/13/18 21:00 21:00 06:00 WBC 8.1 D 8.6 RBC 5.19 5.00 Hgb 13.2 12.8 Hct 40.9 39.5 MCV 78.8 L 79.0 L MCH 25.5 L 25.6 L MCHC 32.3 L 32.3 L RDW 14.8 H 14.7 H Plt Count 286 273 MPV 8.1 7.7 Neut % (Auto) 84.2 H 87.1 H Lymph % (Auto) 11.7 L 8.1 L [place] % (Auto) 3.6 4.7 Eos % (Auto) 0.1 0.0 Baso % (Auto) 0.4 0.1 Neut # (Auto) 6.8 7.5 H Lymph # (Auto) 0.9 L 0.7 L [place] # (Auto) 0.3 0.4 Eos # (Auto) 0.0 0.0 Baso # (Auto) 0.0 0.0 Neutrophils % (Manual) 89 H Band Neutrophils % 3 H Lymphocytes % (Manual) 5 L Reactive Lymphs % 3 H Monocytes % (Manual) TEST NOT PERFORMED Platelet Estimate Normal Hypochromasia (manual) Slight Stomatocytes Slight Sodium 140 Potassium 4.2 Chloride 102 Carbon Dioxide 23 Anion Gap 19 BUN 13 Creatinine 0.5 L Est GFR ( Amer) > 60 Est GFR (Non-Af Amer) > 60 Random Glucose 116 H Lactic Acid Calcium 9.1 Total Bilirubin 1.7 H AST 35 ALT 53 H D Alkaline Phosphatase 93 Total Protein 8.6 H Albumin 4.5 Globulin 4.1 H Albumin/Globulin Ratio 1.1 Lipase 60 02/13/18 02/13/18 06:00 12:05 WBC RBC Hgb Hct MCV MCH MCHC RDW Plt Count MPV Neut % (Auto) Lymph % (Auto) [place] % (Auto) Eos % (Auto) Baso % (Auto) Neut # (Auto) Lymph # (Auto) [place] # (Auto) Eos # (Auto) Baso # (Auto) Neutrophils % (Manual) Band Neutrophils % Lymphocytes % (Manual) Reactive Lymphs % Monocytes % (Manual) Platelet Estimate Hypochromasia (manual) Stomatocytes Sodium 141 Potassium 3.9 Chloride 104 Carbon Dioxide 25 Anion Gap 16 BUN 11 Creatinine 0.5 L Est GFR ( Amer) > 60 Est GFR (Non-Af Amer) > 60 Random Glucose 123 H Lactic Acid 2.4 H Calcium 8.6 Total Bilirubin AST ALT Alkaline Phosphatase Total Protein Albumin Globulin Albumin/Globulin Ratio Lipase Assessment & Plan - Assessment and Plan (Free Text) Plan: - repeat labs in am - NG tube to wall suction - Will follow
[2018-02-13 06:19] LABS: BASO % 0.1 % (0.0-2.0); HEMOGLOBIN 12.8 g/dL (12.0-16.0); LYMPH # 0.7 K/uL (1.0-4.3); LYMPH % 8.1 % (20.0-40.0); MEAN CORPUSCULAR HEMOGLOBIN 25.6 pg (27.0-31.0); MEAN CORPUSCULAR HGB CONC 32.3 g/dL (33.0-37.0); MEAN PLATELET VOLUME 7.7 fl (7.2-11.7); MONO # 0.4 K/uL (0.0-0.8); MONO % 4.7 % (0.0-10.0); NEUT # 7.5 K/uL (1.8-7.0); NEUT % 87.1 % (50.0-75.0); PLATELET COUNT 273 K/uL (130-400); RED CELL DISTRIBUTION WIDTH 14.7 % (11.5-14.5); WHITE BLOOD COUNT 8.6 K/uL (4.8-10.8)
[2018-02-13 06:35] LABS: BLOOD UREA NITROGEN 11 mg/dl (7-17); CALCIUM 8.6 mg/dL (8.4-10.2); GFR AFRICAN-AMERICAN > 60; GFR NON-AFRICAN AMERICAN > 60
[2018-02-13 08:34] LABS: BANDS 3 % (0-2); LYMPHOCYTE 5 % (20-50); NEUTROPHIL 89 % (42-75); REACTIVE LYMPHOCYTES 3 % (0-0); TOTAL CELLS COUNTED 100
[2018-02-13 08:35] LABS: HYPOCHROMIC SLIGHT; STOMATOCYTES SLIGHT
[2018-02-13 08:36] LABS: PLATELET ESTIMATE NORMAL (NORMAL)
[2018-02-13] MEDS: Dextrose 5%/0.9% NS 1,000 ML IV SCH (08:46)
[2018-02-13] MEDS ORDERED: Pneumococcal 23-Valent Vaccine IM ONE (09:00)
[2018-02-13] MEDS ORDERED: Morphine 4 MG/ML VIAL IVP ONE (09:40)
--- NOTE | 2018-02-13 09:44 | RAD ---
HISTORY: ng tube placement COMPARISON: Chest radiograph 12/05/2017. FINDINGS: LUNGS: No active pulmonary disease. PLEURA: No significant pleural effusion identified, no pneumothorax apparent. CARDIOVASCULAR: Normal. OSSEOUS STRUCTURES: Unchanged. VISUALIZED UPPER ABDOMEN: Normal. OTHER FINDINGS: Enteric tube with tip in the stomach. IMPRESSION: Enteric tube in satisfactory position. No focal consolidation or pleural effusion.
[2018-02-13] MEDS: Morphine 4 MG/ML VIAL IVP PRN ×2 (13:45→22:41)
--- NOTE | 2018-02-13 14:32 | CP.PCM.HP ---
History of Present Illness - History of Present Illness History of Present Illness: CC: Abdominal ain. 57 y/o F, Hx of AAA in 2011, Hx of Ovarian Cyst removed on 10/29/17 and after developed perforated bowel with resection of intestinal and bowel anastosis at [facility]. Pt came to ER [facility] [place] to be evaluated for abdominal pain for 2 month gradually increased a week [employer] with no relief. Pt c/o of uncontrolled abdominal pain epigastric area, constant with severe intensity 7-8:10 in the last week associated to nausea that subsided on arrival to ED. Pt had NGT placed on arrival to ER. Worsening symptoms: Difficulty passing gas until DOA. Dizziness. Aggravated factor: Changing positions. Pt denied: Fever, chills, n/v/d, urinary symptoms, SOB, cough, CP, palpitation , dizziness, syncope, sick contact, recent travel out of [facility]. Abd/Pelv CT shows: SBO with transition at the enteral anatomic site in the RLQ. Prominence of the R adnexa with small cyst. CXR: No focal consolidation or pleural effusion. Enteric tube in satisfactory position. Present on Admission - Present on Admission Any Indicators Present on Admission: No Review of Systems - Constitutional Constitutional: Other (negative) - EENT Eyes: Other (negative) Ears: Other (negative) Nose/Mouth/Throat: Other (negative) - Cardiovascular Cardiovascular: Other (negative) - Respiratory Respiratory: Other (negative) - Gastrointestinal Gastrointestinal: Abdominal Pain, Nausea - Genitourinary Genitourinary: Other (negative) - Musculoskeletal Musculoskeletal: Other (negative) - Integumentary Integumentary: Other (negative) - Neurological Neurological: Dizziness - Psychiatric Psychiatric: Other (negative) - Endocrine Endocrine: Other (negative) - Hematologic/Lymphatic Hematologic: Other (negative) Past Patient History - Past Medical History & Family History Past Medical History?: Yes Pertinent Family History: Unknown - Past Social History Smoking Status: Never Smoked Alcohol: None Drugs: Denies Home Situation {Lives}: Alone - CARDIAC Hx Cardiac Disorders: Yes Hx Hypertension: Yes - PULMONARY Hx Respiratory Disorders: No - NEUROLOGICAL Hx Neurological Disorder: No - HEENT Hx HEENT Problems: No - RENAL Hx Chronic Kidney Disease: No - ENDOCRINE/METABOLIC Hx Endocrine Disorders: Yes Hx Hypothyroidism: Yes - HEMATOLOGICAL/ONCOLOGICAL Hx Blood Disorders: Yes Hx Anemia: Yes - INTEGUMENTARY Hx Dermatological Problems: No - MUSCULOSKELETAL/RHEUMATOLOGICAL Hx Musculoskeletal Disorders: No Hx Falls: No - GASTROINTESTINAL Hx Gastrointestinal Disorders: Yes Hx Bowel Surgery: Yes - GENITOURINARY/GYNECOLOGICAL Hx Genitourinary Disorders: Yes Other/Comment: Ovarian cyst with removal - PSYCHIATRIC Hx Psychophysiologic Disorder: No Hx Substance Use: No - SURGICAL HISTORY Hx Surgeries: Yes Hx Hysterectomy: Yes Other/Comment: OVarian cyst removal, small intestine surgery. - ANESTHESIA Hx Anesthesia: Yes Hx Anesthesia Reactions: No Hx Malignant Hyperthermia: No Meds Allergies/Adverse Reactions: Allergies Allergy/AdvReac Type Severity Reaction Status Date / Time No Known Allergies Allergy Verified 02/12/18 19:46 Physical Exam - Constitutional Appears: No Acute Distress - Head Exam Head Exam: NORMAL INSPECTION - Eye Exam Eye Exam: PERRL - ENT Exam Additional comments: NGT in place - Neck Exam Neck exam: Positive for: Normal Inspection - Respiratory Exam Respiratory Exam: Clear to Auscultation Bilateral - Cardiovascular Exam Cardiovascular Exam: REGULAR RHYTHM - GI/Abdominal Exam GI & Abdominal Exam: Soft, Tenderness (mild epigastric). absent: Guarding, Rebound Additional comments: Midline well healed scar from prior Laparotomy. - Extremities Exam Extremities exam: Positive for: normal inspection - Back Exam Back exam: NORMAL INSPECTION - Neurological Exam Neurological exam: Alert, Oriented x3 - Psychiatric Exam Psychiatric exam: Normal Mood - Skin Skin Exam: Warm Results - Vital Signs Recent Vital Signs: Last Vital Signs Temp 99.5 F 02/13/18 08:26 Pulse 111 H 02/13/18 08:26 Resp 20 02/13/18 08:26 BP 155/96 H 02/13/18 08:26 Pulse Ox 97 02/13/18 08:26 reviewed Darlin - Labs Result Diagrams: 02/13/18 06:00 02/13/18 06:00 Labs: Laboratory Results - last 24 hr 02/12/18 02/12/18 02/13/18 21:00 21:00 06:00 WBC 8.1 D 8.6 RBC 5.19 5.00 Hgb 13.2 12.8 Hct 40.9 39.5 MCV 78.8 L 79.0 L MCH 25.5 L 25.6 L MCHC 32.3 L 32.3 L RDW 14.8 H 14.7 H Plt Count 286 273 MPV 8.1 7.7 Neut % (Auto) 84.2 H 87.1 H Lymph % (Auto) 11.7 L 8.1 L Jones % (Auto) 3.6 4.7 Eos % (Auto) 0.1 0.0 Baso % (Auto) 0.4 0.1 Neut # (Auto) 6.8 7.5 H Lymph # (Auto) 0.9 L 0.7 L Jones # (Auto) 0.3 0.4 Eos # (Auto) 0.0 0.0 Baso # (Auto) 0.0 0.0 Neutrophils % (Manual) 89 H Band Neutrophils % 3 H Lymphocytes % (Manual) 5 L Reactive Lymphs % 3 H Monocytes % (Manual) TEST NOT PERFORMED Platelet Estimate Normal Hypochromasia (manual) Slight Stomatocytes Slight Sodium 140 Potassium 4.2 Chloride 102 Carbon Dioxide 23 Anion Gap 19 BUN 13 Creatinine 0.5 L Est GFR ( Amer) > 60 Est GFR (Non-Af Amer) > 60 Random Glucose 116 H Lactic Acid Calcium 9.1 Total Bilirubin 1.7 H AST 35 ALT 53 H D Alkaline Phosphatase 93 Total Protein 8.6 H Albumin 4.5 Globulin 4.1 H Albumin/Globulin Ratio 1.1 Lipase 60 02/13/18 02/13/18 06:00 12:05 WBC RBC Hgb Hct MCV MCH MCHC RDW Plt Count MPV Neut % (Auto) Lymph % (Auto) Jones % (Auto) Eos % (Auto) Baso % (Auto) Neut # (Auto) Lymph # (Auto) Jones # (Auto) Eos # (Auto) Baso # (Auto) Neutrophils % (Manual) Band Neutrophils % Lymphocytes % (Manual) Reactive Lymphs % Monocytes % (Manual) Platelet Estimate Hypochromasia (manual) Stomatocytes Sodium 141 Potassium 3.9 Chloride 104 Carbon Dioxide 25 Anion Gap 16 BUN 11 Creatinine 0.5 L Est GFR ( Amer) > 60 Est GFR (Non-Af Amer) > 60 Random Glucose 123 H Lactic Acid 2.4 H Calcium 8.6 Total Bilirubin AST ALT Alkaline Phosphatase Total Protein Albumin Globulin Albumin/Globulin Ratio Lipase reviewed J.P. - EKG Data EKG comments: reviewed J.P. - Imaging and Cardiology Chest x-ray Status: Report reviewed by me (J.P.) CT scan - abdomen Status: Report reviewed by me (J.P.) CT scan - pelvis Status: Report reviewed by me (Darlin) Assessment & Plan (1) SBO (small bowel obstruction) Status: Acute Priority: High (2) Abdominal pain Status: Acute Priority: High (3) HTN (hypertension) Status: Chronic Priority: Medium (4) Hypothyroidism Status: Chronic Priority: Medium (5) High cholesterol Status: Chronic Priority: Medium - Assessment and Plan (Free Text) Plan: Keep in NPO, IV fluid, Morphine, Surgery consult appreciated. - Date & Time Date: 02/13/18 Time: 13:30
[2018-02-13] MEDS: Sodium Chloride 0.9% 1,000 ML IV SCH (16:13)
[2018-02-14] MEDS: Sodium Chloride 0.9% 1,000 ML IV SCH ×4 (01:30→10:01)
[2018-02-14] MEDS: Dextrose 5%/0.9% NS 1,000 ML IV SCH ×2 (01:51→04:06)
--- NOTE | 2018-02-14 09:12 | CP.PCM.PN ---
<Jose Luis Peacock - Last Filed: 02/14/18 09:12> Subjective - Date & Time of Evaluation Date of Evaluation: 02/14/18 Time of Evaluation: 07:15 - Subjective Subjective: Patient seen and examined. Reports abdominal pain has improved. Denies fever/ chills. NGT output 100cc yellow liquid in canister. No acute events over night. Objective - Vital Signs/Intake and Output Vital Signs (last 24 hours): Temp Pulse Resp BP Pulse Ox 98.3 F 115 H 20 127/80 96 02/14/18 08:10 02/14/18 08:10 02/14/18 08:10 02/14/18 08:10 02/14/18 08:10 - Medications Medications: Current Medications Sodium Chloride (Sodium Chloride 0.9%) 1,000 mls @ 1,000 mls/hr IV .Q1H JERROD Stop: 02/14/18 15:59 Last Admin: 02/13/18 16:13 Dose: 1,000 mls/hr Sodium Chloride (Sodium Chloride 0.9%) 1,000 mls @ 125 mls/hr IV .Q8H JERROD Stop: 02/14/18 17:20 Last Admin: 02/14/18 01:30 Dose: Not Given Morphine Sulfate (Morphine) 4 mg IVP Q4H PRN PRN Reason: Pain, moderate (4-7) Last Admin: 02/13/18 22:41 Dose: 4 mg Ondansetron HCl (Zofran Odt) 4 mg PO Q4H PRN PRN Reason: Nausea/Vomiting Last Admin: 02/13/18 18:27 Dose: 4 mg - Labs Labs: 02/13/18 06:00 02/13/18 06:00 - Constitutional Appears: No Acute Distress - Head Exam Head Exam: NORMOCEPHALIC - Eye Exam Eye Exam: Normal appearance - ENT Exam ENT Exam: Mucous Membranes Moist - Respiratory Exam Respiratory Exam: NORMAL BREATHING PATTERN - Cardiovascular Exam Cardiovascular Exam: +S1, +S2 - GI/Abdominal Exam GI & Abdominal Exam: Soft. absent: Firm, Guarding, Tenderness - Neurological Exam Neurological Exam: Alert, Awake, Oriented x3 - Psychiatric Exam Psychiatric exam: Normal Mood - Skin Skin Exam: Dry, Intact, Warm Assessment and Plan - Assessment and Plan (Free Text) Assessment: 57F w/ SBO Plan: -NPO -IVF -NGT to low intermittent suction -Strict I&O's -Monitor bowel function -C/w Analgesic -Encourage ambulation -Further recs per Dr. Liza Hopson PGY2 <Anthony De Jesus - Last Filed: 02/14/18 13:42> Subjective - Date & Time of Evaluation Time of Evaluation: 13:30 - Subjective Subjective: Patient was seen and examined at the bedside. Agree with resident's note above. Objective - Vital Signs/Intake and Output Vital Signs (last 24 hours): Temp Pulse Resp BP Pulse Ox 98.3 F 115 H 20 127/80 96 02/14/18 08:10 02/14/18 08:10 02/14/18 08:10 02/14/18 08:10 02/14/18 08:10 - Medications Medications: Current Medications Sodium Chloride (Sodium Chloride 0.9%) 1,000 mls @ 1,000 mls/hr IV .Q1H JERROD Stop: 02/14/18 15:59 Last Admin: 02/14/18 10:01 Dose: Not Given Sodium Chloride (Sodium Chloride 0.9%) 1,000 mls @ 125 mls/hr IV .Q8H JERROD Stop: 02/14/18 17:20 Last Admin: 02/14/18 10:01 Dose: Not Given Morphine Sulfate (Morphine) 4 mg IVP Q4H PRN PRN Reason: Pain, moderate (4-7) Last Admin: 02/13/18 22:41 Dose: 4 mg Ondansetron HCl (Zofran Odt) 4 mg PO Q4H PRN PRN Reason: Nausea/Vomiting Last Admin: 02/13/18 18:27 Dose: 4 mg - Labs Labs: 02/13/18 06:00 02/13/18 06:00 - GI/Abdominal Exam Additional comments: soft, mildly tender, ND, BS+, no rebound, no guarding, well healed scar from prior surgery
--- NOTE | 2018-02-14 15:04 | CP.PCM.PN ---
Subjective - Date & Time of Evaluation Date of Evaluation: 02/14/18 Time of Evaluation: 14:40 - Subjective Subjective: F/U SB epigastric tenderness , NG tube Objective - Vital Signs/Intake and Output Vital Signs (last 24 hours): Temp Pulse Resp BP Pulse Ox 98.3 F 115 H 20 127/80 96 02/14/18 08:10 02/14/18 08:10 02/14/18 08:10 02/14/18 08:10 02/14/18 08:10 - Medications Medications: Current Medications Sodium Chloride (Sodium Chloride 0.9%) 1,000 mls @ 1,000 mls/hr IV .Q1H JERROD Stop: 02/14/18 15:59 Last Admin: 02/14/18 10:01 Dose: Not Given Sodium Chloride (Sodium Chloride 0.9%) 1,000 mls @ 125 mls/hr IV .Q8H JERROD Stop: 02/14/18 17:20 Last Admin: 02/14/18 10:01 Dose: Not Given Morphine Sulfate (Morphine) 4 mg IVP Q4H PRN PRN Reason: Pain, moderate (4-7) Last Admin: 02/13/18 22:41 Dose: 4 mg Ondansetron HCl (Zofran Odt) 4 mg PO Q4H PRN PRN Reason: Nausea/Vomiting Last Admin: 02/13/18 18:27 Dose: 4 mg - Labs Labs: 02/13/18 06:00 02/13/18 06:00 - Constitutional Appears: No Acute Distress - Head Exam Head Exam: NORMAL INSPECTION - Eye Exam Eye Exam: PERRL - ENT Exam Additional comments: NGT in place - Neck Exam Neck Exam: Normal Inspection - Respiratory Exam Respiratory Exam: Clear to Ausculation Bilateral - Cardiovascular Exam Cardiovascular Exam: REGULAR RHYTHM - GI/Abdominal Exam GI & Abdominal Exam: Soft, Tenderness (mild epigastric area). absent: Guarding , Rebound Additional comments: Midline well healed scar from previous Laparotomy. - Extremities Exam Extremities Exam: Normal Inspection - Back Exam Back Exam: NORMAL INSPECTION - Neurological Exam Neurological Exam: Alert, Oriented x3 - Psychiatric Exam Psychiatric exam: Normal Mood - Skin Skin Exam: Warm Assessment and Plan (1) SBO (small bowel obstruction) Status: Acute (2) Abdominal pain Status: Acute (3) HTN (hypertension) Status: Chronic (4) Hypothyroidism Status: Chronic (5) High cholesterol Status: Chronic - Assessment and Plan (Free Text) Plan: continue NG tubr , IVF , Morphine
[2018-02-15] MEDS: Dextrose 5%/0.9% NS 1,000 ML IV SCH ×2 (00:26→14:00)
--- NOTE | 2018-02-15 07:30 | CP.PCM.PN ---
<Elen Chambers - Last Filed: 02/15/18 07:28> Subjective - Date & Time of Evaluation Date of Evaluation: 02/15/18 Time of Evaluation: 07:28 - Subjective Subjective: Surgery Pt seen and examined. No acute events. Denies fever, chills, nausea, SOB, CP. + amb, + void, reports diarrhea. Non bloody. NGT clamped overnight. Reports mild abd pain. Objective - Vital Signs/Intake and Output Vital Signs (last 24 hours): Temp Pulse Resp BP Pulse Ox 98.7 F 92 H 18 104/66 98 02/15/18 00:48 02/15/18 00:48 02/15/18 00:48 02/15/18 00:48 02/15/18 00:48 Intake and Output: 02/15/18 02/15/18 06:59 18:59 Output Total 25 Balance -25 - Medications Medications: Current Medications Morphine Sulfate (Morphine) 4 mg IVP Q4H PRN PRN Reason: Pain, moderate (4-7) Last Admin: 02/13/18 22:41 Dose: 4 mg Ondansetron HCl (Zofran Odt) 4 mg PO Q4H PRN PRN Reason: Nausea/Vomiting Last Admin: 02/13/18 18:27 Dose: 4 mg - Labs Labs: 02/13/18 06:00 02/13/18 06:00 - Constitutional Appears: No Acute Distress - Head Exam Head Exam: ATRAUMATIC, NORMAL INSPECTION, NORMOCEPHALIC - Eye Exam Eye Exam: EOMI, Normal appearance, PERRL Pupil Exam: NORMAL ACCOMODATION, PERRL - ENT Exam ENT Exam: Mucous Membranes Moist, Normal Exam - Neck Exam Neck Exam: Full ROM, Normal Inspection. absent: Lymphadenopathy - Respiratory Exam Respiratory Exam: Clear to Ausculation Bilateral, NORMAL BREATHING PATTERN - Cardiovascular Exam Cardiovascular Exam: REGULAR RHYTHM, +S1, +S2. absent: Murmur - GI/Abdominal Exam GI & Abdominal Exam: Soft, Tenderness, Normal Bowel Sounds. absent: Distended, Firm, Guarding, Rigid, Hernia, Mass, Pulsatile Mass, Rebound Additional comments: Mid abd TTP. Well healed scars. - Exam Exam: NORMAL INSPECTION - Extremities Exam Extremities Exam: Full ROM, Normal Capillary Refill, Normal Inspection. absent : Joint Swelling, Pedal Edema - Back Exam Back Exam: NORMAL INSPECTION - Neurological Exam Neurological Exam: Alert, Awake, CN II-XII Intact, Normal Gait, Oriented x3 - Psychiatric Exam Psychiatric exam: Normal Affect, Normal Mood - Skin Skin Exam: Dry, Intact, Normal Color, Warm Assessment and Plan - Assessment and Plan (Free Text) Assessment: 57F w/ SBO : improving Plan: -NPO -IVF -NGT clamped. Possible DC after Dr. De Jesus evaluation -Strict I&O's -Monitor bowel function -C/w Analgesic -Encourage ambulation -Further recs per Dr. De Jesus <Anthony De Jesus - Last Filed: 02/15/18 15:15> Subjective - Date & Time of Evaluation Time of Evaluation: 15:00 - Subjective Subjective: Patient was seen and examined at the bedside. Agree with resident's note above. Objective - Vital Signs/Intake and Output Vital Signs (last 24 hours): Temp Pulse Resp BP Pulse Ox 98.4 F 79 20 116/67 97 02/15/18 07:47 02/15/18 07:47 02/15/18 07:47 02/15/18 07:47 02/15/18 07:47 Intake and Output: 02/15/18 02/15/18 06:59 18:59 Output Total 25 Balance -25 - Medications Medications: Current Medications Dextrose/Sodium Chloride (Dextrose 5%/0.9% Ns 1000 Ml) 1,000 mls @ 100 mls/hr IV .Q10H JERROD Stop: 02/16/18 09:02 Morphine Sulfate (Morphine) 4 mg IVP Q4H PRN PRN Reason: Pain, moderate (4-7) Last Admin: 02/13/18 22:41 Dose: 4 mg Ondansetron HCl (Zofran Odt) 4 mg PO Q4H PRN PRN Reason: Nausea/Vomiting Last Admin: 02/13/18 18:27 Dose: 4 mg - Labs Labs: 02/15/18 10:30 02/15/18 10:30 Assessment and Plan - Assessment and Plan (Free Text) Plan: - remove NG tube - IV fluids - Start clear liquid diet - pain control - Repeat labs in am - Will follow
[2018-02-15 11:06] LABS: HEMOGLOBIN 10.8 g/dL (12.0-16.0); MEAN CELL VOLUME 79.4 fl (81.0-99.0); MEAN CORPUSCULAR HEMOGLOBIN 25.6 pg (27.0-31.0); MEAN CORPUSCULAR HGB CONC 32.2 g/dL (33.0-37.0); RBC 4.22 Mil/uL (3.80-5.20); RED CELL DISTRIBUTION WIDTH 14.5 % (11.5-14.5); WHITE BLOOD COUNT 4.3 K/uL (4.8-10.8)
[2018-02-15 11:10] LABS: ALBUMIN 3.3 g/dL (3.5-5.0); ALT/SGPT 40 U/L (9-52); AST/SGOT 24 U/L (14-36); BLOOD UREA NITROGEN 5 mg/dl (7-17); CALCIUM 8.1 mg/dL (8.4-10.2); GFR AFRICAN-AMERICAN > 60; GFR NON-AFRICAN AMERICAN > 60
--- NOTE | 2018-02-15 14:41 | CP.PCM.PN ---
Subjective - Date & Time of Evaluation Date of Evaluation: 02/15/18 Time of Evaluation: 11:30 - Subjective Subjective: F/U SBO\ lower quadrants abdominal pain , NG tube clamped Objective - Vital Signs/Intake and Output Vital Signs (last 24 hours): Temp Pulse Resp BP Pulse Ox 98.4 F 79 20 116/67 97 02/15/18 07:47 02/15/18 07:47 02/15/18 07:47 02/15/18 07:47 02/15/18 07:47 Intake and Output: 02/15/18 02/15/18 06:59 18:59 Output Total 25 Balance -25 - Medications Medications: Current Medications Dextrose/Sodium Chloride (Dextrose 5%/0.9% Ns 1000 Ml) 1,000 mls @ 100 mls/hr IV .Q10H JERROD Stop: 02/16/18 09:02 Morphine Sulfate (Morphine) 4 mg IVP Q4H PRN PRN Reason: Pain, moderate (4-7) Last Admin: 02/13/18 22:41 Dose: 4 mg Ondansetron HCl (Zofran Odt) 4 mg PO Q4H PRN PRN Reason: Nausea/Vomiting Last Admin: 02/13/18 18:27 Dose: 4 mg - Labs Labs: 02/15/18 10:30 02/15/18 10:30 - Constitutional Appears: No Acute Distress - Head Exam Head Exam: NORMAL INSPECTION - Eye Exam Eye Exam: PERRL - ENT Exam ENT Exam: Normal Exam Additional comments: NGT in place - Neck Exam Neck Exam: Normal Inspection - Respiratory Exam Respiratory Exam: Clear to Ausculation Bilateral - Cardiovascular Exam Cardiovascular Exam: REGULAR RHYTHM - GI/Abdominal Exam GI & Abdominal Exam: Soft, Tenderness (lower quadrants). absent: Guarding, Rebound - Extremities Exam Extremities Exam: Normal Inspection - Back Exam Back Exam: NORMAL INSPECTION - Neurological Exam Neurological Exam: Alert, Oriented x3 - Psychiatric Exam Psychiatric exam: Normal Mood - Skin Skin Exam: Warm Assessment and Plan (1) SBO (small bowel obstruction) Status: Acute (2) Abdominal pain Status: Acute (3) HTN (hypertension) Status: Chronic (4) Hypothyroidism Status: Chronic (5) High cholesterol Status: Chronic - Assessment and Plan (Free Text) Plan: Surgical team planning DC NGT today ,continue IVF
[2018-02-15] MEDS ORDERED: Potassium Chloride 20 mEq ER Tab PO ONE (16:52)
[2018-02-16] MEDS: Dextrose 5%/0.9% NS 1,000 ML IV SCH ×2 (01:55→05:09)
[2018-02-16 08:59] LABS: HEMOGLOBIN 11.6 g/dL (12.0-16.0); MEAN CELL VOLUME 78.3 fl (81.0-99.0); MEAN CORPUSCULAR HEMOGLOBIN 25.6 pg (27.0-31.0); MEAN CORPUSCULAR HGB CONC 32.7 g/dL (33.0-37.0); RBC 4.53 Mil/uL (3.80-5.20); RED CELL DISTRIBUTION WIDTH 14.3 % (11.5-14.5); WHITE BLOOD COUNT 2.7 K/uL (4.8-10.8)
[2018-02-16 09:48] LABS: ALBUMIN 3.6 g/dL (3.5-5.0); ALT/SGPT 40 U/L (9-52); AST/SGOT 24 U/L (14-36); BLOOD UREA NITROGEN 3 mg/dl (7-17); CALCIUM 8.7 mg/dL (8.4-10.2); GFR AFRICAN-AMERICAN > 60; GFR NON-AFRICAN AMERICAN > 60
[2018-02-16] MEDS: Pravastatin Sodium 40 MG TAB PO SCH (10:19)
[2018-02-16] MEDS: Levothyroxine 88 MCG TAB PO SCH (10:19)
--- NOTE | 2018-02-16 11:04 | PQF GENQUE ---
Dr. Salazar, Is there an associated diagnosis stephanie go along with the following clinical labs: K: 4.2->3.9->3.4->3.8---- Range: (3.6-5.0) 02/15 Attending progress note: Assessment and Plan : (1) SBO (small bowel obstruction) Status: Acute (2) Abdominal pain Status: Acute (3) HTN ( hypertension) Status: Chronic (4) Hypothyroidism Status: Chronic (5) High cholesterol Status: Chronic Plan: Surgical team planning DC NGT today ,continue IVF Physician order: 02/15: Potassium Chloride 20 meq. once This form is a permanent part of the medical record Clarification of your documentation is requested to better reflect the severity of illness and intensity of treatment of your patient. Indicators present [] Specify: [] [] Specify: [] [] Specify: [] [] Specify: [] Location in the medical record that reflects the above clinical findings: [] Treatment Provided: [] PHYSICIAN'S RESPONSE Based on your medical judgment of the clinical indicators outlined above please clarify the following: [] Practitioner response [] If unable to determine, please check the box, sign and date. Present On Admission (POA) Indicator: [] Present at the time of admission [] Not present at the time of admission [] Clinically Undetermined In responding to this query, please exercise your independent professional judgment. The fact that a question is asked does not imply that any particular answer is desired or expected. Thank you for your clarification on this documentation. If you have any questions please call. * Thank you, Jessika Chapin RN ext. #[phone] MTDD
--- NOTE | 2018-02-16 12:17 | CP.PCM.PN ---
<Elen Chambers - Last Filed: 02/16/18 12:15> Subjective - Date & Time of Evaluation Date of Evaluation: 02/16/18 Time of Evaluation: 12:15 - Subjective Subjective: Surgery Pt seen and examined. No acute event. Pt has BM. Pain controlled. Denies fever, nausea, chest pain. + amb. + void. Tolerating CLD. Objective - Vital Signs/Intake and Output Vital Signs (last 24 hours): Temp Pulse Resp BP Pulse Ox 98.5 F 68 20 132/79 98 02/16/18 08:12 02/16/18 08:12 02/16/18 08:12 02/16/18 08:12 02/16/18 08:12 - Medications Medications: Current Medications Levothyroxine Sodium (Synthroid) 88 mcg PO DAILY@0630 [facility] Last Admin: 02/16/18 10:19 Dose: 88 mcg Losartan Potassium (Cozaar) 25 mg PO DAILY [facility] Last Admin: 02/16/18 10:19 Dose: 25 mg Morphine Sulfate (Morphine) 4 mg IVP Q4H PRN PRN Reason: Pain, moderate (4-7) Last Admin: 02/13/18 22:41 Dose: 4 mg Ondansetron HCl (Zofran Odt) 4 mg PO Q4H PRN PRN Reason: Nausea/Vomiting Last Admin: 02/13/18 18:27 Dose: 4 mg Pravastatin Sodium (Pravachol) 40 mg PO DAILY [facility] Last Admin: 02/16/18 10:19 Dose: 40 mg - Labs Labs: 02/16/18 08:50 02/16/18 08:50 - Constitutional Appears: No Acute Distress - Head Exam Head Exam: ATRAUMATIC, NORMAL INSPECTION, NORMOCEPHALIC - Eye Exam Eye Exam: EOMI, Normal appearance, PERRL Pupil Exam: NORMAL ACCOMODATION, PERRL - ENT Exam ENT Exam: Mucous Membranes Moist, Normal Exam - Neck Exam Neck Exam: Full ROM, Normal Inspection. absent: Lymphadenopathy - Respiratory Exam Respiratory Exam: Clear to Ausculation Bilateral, NORMAL BREATHING PATTERN - Cardiovascular Exam Cardiovascular Exam: REGULAR RHYTHM, +S1, +S2. absent: Murmur - GI/Abdominal Exam GI & Abdominal Exam: Soft, Tenderness, Normal Bowel Sounds. absent: Distended, Firm Additional comments: well healed scars. - Extremities Exam Extremities Exam: Full ROM, Normal Capillary Refill, Normal Inspection. absent : Joint Swelling, Pedal Edema - Back Exam Back Exam: NORMAL INSPECTION - Neurological Exam Neurological Exam: Alert, Awake, CN II-XII Intact, Normal Gait, Oriented x3 - Psychiatric Exam Psychiatric exam: Normal Affect, Normal Mood - Skin Skin Exam: Dry, Intact, Normal Color, Warm Assessment and Plan - Assessment and Plan (Free Text) Assessment: 57F w/ SBO : improving Plan: -CLD: Advance diet as tolerated -IVF -Strict I&O's -Monitor bowel function -C/w Analgesic -Encourage ambulation -Further recs per Dr. De Jesus <Anthony De Jesus - Last Filed: 02/16/18 16:38> Subjective - Date & Time of Evaluation Time of Evaluation: 16:00 - Subjective Subjective: Patient was seen and examined at the bedside. Agree with resident's note above. Passing flatus and having bowel movements, still reports some abdominal pain. Objective - Vital Signs/Intake and Output Vital Signs (last 24 hours): Temp Pulse Resp BP Pulse Ox 98.1 F 66 18 158/97 H 97 02/16/18 15:47 02/16/18 15:47 02/16/18 15:47 02/16/18 15:47 02/16/18 15:47 - Medications Medications: Current Medications Levothyroxine Sodium (Synthroid) 88 mcg PO DAILY@0630 [facility] Last Admin: 02/16/18 10:19 Dose: 88 mcg Losartan Potassium (Cozaar) 25 mg PO DAILY [facility] Last Admin: 02/16/18 10:19 Dose: 25 mg Morphine Sulfate (Morphine) 4 mg IVP Q4H PRN PRN Reason: Pain, moderate (4-7) Last Admin: 02/16/18 15:31 Dose: 4 mg Ondansetron HCl (Zofran Odt) 4 mg PO Q4H PRN PRN Reason: Nausea/Vomiting Last Admin: 02/13/18 18:27 Dose: 4 mg Pravastatin Sodium (Pravachol) 40 mg PO DAILY [facility] Last Admin: 02/16/18 10:19 Dose: 40 mg - Labs Labs: 02/16/18 08:50 02/16/18 08:50 - GI/Abdominal Exam Additional comments: soft, mildly tender, ND, BS+, no rebound, no guarding, well healed incision from prior surgery Assessment and Plan - Assessment and Plan (Free Text) Plan: - Advance diet as tolerated - Pain control - Repeat labs in am - Will follow
--- NOTE | 2018-02-16 13:57 | CP.PCM.PN ---
Subjective - Date & Time of Evaluation Date of Evaluation: 02/16/18 Time of Evaluation: 10:30 - Subjective Subjective: F/U SBO Complaining of low abdominal pain after drinking clear fluids ,also complained of low abdominal pain walking , Patient is having bowel movements. wbc 2.7 , f/u CBC , CMP Objective - Vital Signs/Intake and Output Vital Signs (last 24 hours): Temp Pulse Resp BP Pulse Ox 98.5 F 68 20 132/79 98 02/16/18 08:12 02/16/18 08:12 02/16/18 08:12 02/16/18 08:12 02/16/18 08:12 - Medications Medications: Current Medications Levothyroxine Sodium (Synthroid) 88 mcg PO DAILY@0630 [facility] Last Admin: 02/16/18 10:19 Dose: 88 mcg Losartan Potassium (Cozaar) 25 mg PO DAILY [facility] Last Admin: 02/16/18 10:19 Dose: 25 mg Morphine Sulfate (Morphine) 4 mg IVP Q4H PRN PRN Reason: Pain, moderate (4-7) Last Admin: 02/13/18 22:41 Dose: 4 mg Ondansetron HCl (Zofran Odt) 4 mg PO Q4H PRN PRN Reason: Nausea/Vomiting Last Admin: 02/13/18 18:27 Dose: 4 mg Pravastatin Sodium (Pravachol) 40 mg PO DAILY [facility] Last Admin: 02/16/18 10:19 Dose: 40 mg - Labs Labs: 02/16/18 08:50 02/16/18 08:50 - Constitutional Appears: No Acute Distress - Head Exam Head Exam: NORMAL INSPECTION - Eye Exam Eye Exam: PERRL - ENT Exam ENT Exam: Normal Exam - Neck Exam Neck Exam: Normal Inspection - Respiratory Exam Respiratory Exam: Clear to Ausculation Bilateral - Cardiovascular Exam Cardiovascular Exam: REGULAR RHYTHM - GI/Abdominal Exam GI & Abdominal Exam: Soft, Tenderness (lower quadrants). absent: Guarding, Rebound - Extremities Exam Extremities Exam: Normal Inspection - Back Exam Back Exam: NORMAL INSPECTION - Neurological Exam Neurological Exam: Alert, Oriented x3 - Psychiatric Exam Psychiatric exam: Normal Mood - Skin Skin Exam: Warm Assessment and Plan (1) SBO (small bowel obstruction) Status: Acute (2) Abdominal pain Status: Acute (3) HTN (hypertension) Status: Chronic (4) Hypothyroidism Status: Chronic (5) High cholesterol Status: Chronic - Assessment and Plan (Free Text) Plan: Patient was seen by Surgical team , increase diet as tolerated, pain medication prn
[2018-02-16] MEDS: Morphine 4 MG/ML VIAL IVP PRN ×2 (15:31→19:43)
[2018-02-17] MEDS: Levothyroxine 88 MCG TAB PO SCH (06:00)
[2018-02-17 06:15] LABS: BASO % 0.2 % (0.0-2.0); EOS % 0.8 % (0.0-4.0); HEMOGLOBIN 11.2 g/dL (12.0-16.0); LYMPH # 1.2 K/uL (1.0-4.3); LYMPH % 24.3 % (20.0-40.0); MEAN CELL VOLUME 77.9 fl (81.0-99.0); MEAN CORPUSCULAR HEMOGLOBIN 25.4 pg (27.0-31.0); MEAN CORPUSCULAR HGB CONC 32.6 g/dL (33.0-37.0); MEAN PLATELET VOLUME 7.8 fl (7.2-11.7); MONO # 0.5 K/uL (0.0-0.8); MONO % 11.1 % (0.0-10.0); NEUT # 3.2 K/uL (1.8-7.0); NEUT % 63.6 % (50.0-75.0); RBC 4.41 Mil/uL (3.80-5.20); RED CELL DISTRIBUTION WIDTH 14.2 % (11.5-14.5)
[2018-02-17 07:14] LABS: ALBUMIN 3.5 g/dL (3.5-5.0); ALT/SGPT 39 U/L (9-52); AST/SGOT 35 U/L (14-36); BLOOD UREA NITROGEN 9 mg/dl (7-17); CALCIUM 8.7 mg/dL (8.4-10.2); GFR AFRICAN-AMERICAN > 60; GFR NON-AFRICAN AMERICAN > 60
[2018-02-17] MEDS: Pravastatin Sodium 40 MG TAB PO SCH (08:39)
--- NOTE | 2018-02-17 09:14 | CP.PCM.PN ---
Subjective - Date & Time of Evaluation Date of Evaluation: 02/17/18 Time of Evaluation: 08:50 - Subjective Subjective: Patient was seen and examined at the bedside. Passing flatus and having bowel movements, tolerating regular diet. Objective - Vital Signs/Intake and Output Vital Signs (last 24 hours): Temp Pulse Resp BP Pulse Ox 100.7 F H 93 H 20 128/63 97 02/17/18 08:19 02/17/18 08:40 02/17/18 08:19 02/17/18 08:19 02/17/18 08:40 - Medications Medications: Current Medications Levothyroxine Sodium (Synthroid) 88 mcg PO DAILY@0630 [facility] Last Admin: 02/17/18 06:00 Dose: 88 mcg Losartan Potassium (Cozaar) 25 mg PO DAILY [facility] Last Admin: 02/17/18 08:38 Dose: 25 mg Morphine Sulfate (Morphine) 4 mg IVP Q4H PRN PRN Reason: Pain, moderate (4-7) Last Admin: 02/16/18 19:43 Dose: 4 mg Ondansetron HCl (Zofran Odt) 4 mg PO Q4H PRN PRN Reason: Nausea/Vomiting Last Admin: 02/13/18 18:27 Dose: 4 mg Pravastatin Sodium (Pravachol) 40 mg PO DAILY [facility] Last Admin: 02/17/18 08:39 Dose: 40 mg - Labs Labs: 02/17/18 06:00 02/17/18 06:00 - Constitutional Appears: Well, Non-toxic, No Acute Distress - Head Exam Head Exam: ATRAUMATIC, NORMAL INSPECTION, NORMOCEPHALIC - Eye Exam Eye Exam: EOMI, Normal appearance, PERRL Pupil Exam: NORMAL ACCOMODATION, PERRL - ENT Exam ENT Exam: Mucous Membranes Moist, Normal Exam - Neck Exam Neck Exam: Full ROM, Normal Inspection - Respiratory Exam Respiratory Exam: Clear to Ausculation Bilateral, NORMAL BREATHING PATTERN - Cardiovascular Exam Cardiovascular Exam: REGULAR RHYTHM, +S1, +S2 - GI/Abdominal Exam GI & Abdominal Exam: Soft, Normal Bowel Sounds Additional comments: very mildly tender, ND, no rebound, no guarding, well healed scar from prior surgery - Rectal Exam Rectal Exam: Deferred - Extremities Exam Extremities Exam: Full ROM, Normal Inspection - Neurological Exam Neurological Exam: Alert, Awake, Oriented x3 - Psychiatric Exam Psychiatric exam: Normal Affect, Normal Mood - Skin Skin Exam: Dry, Intact, Normal Color, Warm Assessment and Plan - Assessment and Plan (Free Text) Assessment: 57 y.o., female with resolved small bowel obstruction Plan: - continue diet - Abdominal X-ray today - Pain control - Will follow
--- NOTE | 2018-02-17 11:27 | RAD ---
HISTORY: SBO, upright COMPARISON: 02/13/2018. CT abdomen pelvis FINDINGS: BOWEL: Persistent dilatation of small bowel may represent incomplete/early obstruction. There is a component of thumb printing indicative of edematous bowel wall. BONES: Normal. OTHER FINDINGS: None. IMPRESSION: Dilated loops of small bowel, similar findings identified CT scan perhaps representing early/incomplete small bowel obstruction
[2018-02-17] MEDS ORDERED: Iohexol 240 (50 ml) PO ONE (12:04)
--- NOTE | 2018-02-17 12:14 | CP.PCM.PN ---
Subjective - Date & Time of Evaluation Date of Evaluation: 02/17/18 Time of Evaluation: 12:10 - Subjective Subjective: F/U SBO Complains of abdominal pain lower abdominal quadrants after eating Objective - Vital Signs/Intake and Output Vital Signs (last 24 hours): Temp Pulse Resp BP Pulse Ox 100.7 F H 93 H 20 128/63 97 02/17/18 09:37 02/17/18 08:40 02/17/18 08:19 02/17/18 08:19 02/17/18 08:40 - Medications Medications: Current Medications Acetaminophen (Tylenol 325mg Tab) 650 mg PO Q6 PRN PRN Reason: Fever >100.4 F Last Admin: 02/17/18 09:37 Dose: 650 mg Iohexol (Omnipaque 240 (50 Ml)) 0 ml PO ONCE ONE Stop: 02/17/18 12:05 Levothyroxine Sodium (Synthroid) 88 mcg PO DAILY@0630 [facility] Last Admin: 02/17/18 06:00 Dose: 88 mcg Losartan Potassium (Cozaar) 25 mg PO DAILY [facility] Last Admin: 02/17/18 08:38 Dose: 25 mg Morphine Sulfate (Morphine) 4 mg IVP Q4H PRN PRN Reason: Pain, moderate (4-7) Last Admin: 02/16/18 19:43 Dose: 4 mg Ondansetron HCl (Zofran Odt) 4 mg PO Q4H PRN PRN Reason: Nausea/Vomiting Last Admin: 02/13/18 18:27 Dose: 4 mg Pravastatin Sodium (Pravachol) 40 mg PO DAILY [facility] Last Admin: 02/17/18 08:39 Dose: 40 mg - Labs Labs: 02/17/18 06:00 02/17/18 06:00 - Constitutional Appears: No Acute Distress - Head Exam Head Exam: NORMAL INSPECTION - Eye Exam Eye Exam: PERRL - ENT Exam ENT Exam: Normal Exam - Neck Exam Neck Exam: Normal Inspection - Respiratory Exam Respiratory Exam: Clear to Ausculation Bilateral - Cardiovascular Exam Cardiovascular Exam: REGULAR RHYTHM - GI/Abdominal Exam GI & Abdominal Exam: Tenderness (R L lower quadrants) - Extremities Exam Extremities Exam: Normal Inspection - Back Exam Back Exam: NORMAL INSPECTION - Neurological Exam Neurological Exam: Alert, Oriented x3. absent: Motor Sensory Deficit - Psychiatric Exam Psychiatric exam: Anxious - Skin Skin Exam: Warm Assessment and Plan (1) SBO (small bowel obstruction) Status: Acute (2) Abdominal pain Status: Acute (3) HTN (hypertension) Status: Chronic (4) Hypothyroidism Status: Chronic (5) High cholesterol Status: Chronic - Assessment and Plan (Free Text) Plan: abdominal pain after eating reg diet , requesting pain medication , f/u CT Abd /Pelvis,continue Morphine and rest of treatment.
[2018-02-17] MEDS ORDERED: Iohexol 300 100 ML IJ ONE (14:48)
--- NOTE | 2018-02-17 15:31 | CT ---
PROCEDURE: CT Abdomen and Pelvis with contrast HISTORY: abd pain, fever COMPARISON: CT scan of the abdomen pelvis dated 02/13/2018. TECHNIQUE: Contrast dose: 95 mL Omnipaque 300 Radiation dose: Total exam DLP = 807 mGy-cm. This CT exam was performed using one or more of the following dose reduction techniques: Automated exposure control, adjustment of the mA and/or kV according to patient size, and/or use of iterative reconstruction technique. FINDINGS: LOWER THORAX: 4 mm right upper lobe nodule (series 3, image 11). Cardiomegaly. LIVER: Stable scattered hepatic cysts. No gross lesion or ductal dilatation. GALLBLADDER AND BILE DUCTS: High density within the gallbladder likely represents vicarious excretion of intravenous contrast. PANCREAS: Unremarkable. No gross lesion or ductal dilatation. SPLEEN: Unremarkable. ADRENALS: Unremarkable. No mass. KIDNEYS AND URETERS: Unremarkable. No hydronephrosis. No solid mass. VASCULATURE: Unremarkable. No aortic aneurysm. BOWEL: Similar dilatation of small-bowel loops with slightly improved appearance of the right lower quadrant enteroenteral anastomosis. Sigmoid diverticulosis with questionable wall thickening and extensive adjacent inflammatory change as well as hyperemia of the sigmoid mesocolon. No gross mural thickening. APPENDIX: Normal appendix. PERITONEUM: Unremarkable. No free fluid. No free air. LYMPH NODES: Unremarkable. No enlarged lymph nodes. BLADDER: Unremarkable. REPRODUCTIVE: Stable appearance of right adnexal cysts. Prior hysterectomy. BONES: Prior L3-4 fusion. Laminectomy. Degenerative changes. No acute fracture. OTHER FINDINGS: None. IMPRESSION: Similar dilatation of small-bowel loops with slightly improved appearance of the right lower quadrant enteroenteral anastomosis. Sigmoid diverticulosis with new questionable wall thickening and new extensive and adjacent inflammatory changes well as hyperemia of the sigmoid mesocolon may represent acute diverticulitis. Additional stable findings as above.
[2018-02-17] MEDS: Morphine 4 MG/ML VIAL IVP PRN (19:31)
[2018-02-17] MEDS ORDERED: metroNIDAZOLE 500mg/100ml NS 100 ML IVPB SCH (20:00)
[2018-02-17] MEDS: Ciprofloxacin 400mg/200ml D5W 400 MG/200 ML BAG IVPB SCH (21:02)
[2018-02-18] MEDS: metroNIDAZOLE 500mg/100ml NS 100 ML IVPB SCH ×3 (04:43→20:36)
[2018-02-18] MEDS: Levothyroxine 88 MCG TAB PO SCH (06:10)
--- NOTE | 2018-02-18 07:46 | CP.PCM.PN ---
<Jose Luis Peacock - Last Filed: 02/18/18 07:46> Subjective - Date & Time of Evaluation Date of Evaluation: 02/18/18 Time of Evaluation: 06:40 - Subjective Subjective: Patient seen and examined this morning. Reports abdominal pain has improved. Passing flatus. Denies nausea/vomiting. Objective - Vital Signs/Intake and Output Vital Signs (last 24 hours): Temp Pulse Resp BP Pulse Ox 98.7 F 83 20 95/60 L 97 02/18/18 01:00 02/18/18 01:00 02/18/18 01:00 02/18/18 01:00 02/18/18 01:00 - Medications Medications: Current Medications Acetaminophen (Tylenol 325mg Tab) 650 mg PO Q6 PRN PRN Reason: Fever >100.4 F Last Admin: 02/17/18 09:37 Dose: 650 mg Ciprofloxacin (Cipro 400mg/200ml Dsw) 400 mg in 200 mls @ 200 mls/hr IVPB Q12 [facility] PRN Reason: Protocol Last Admin: 02/17/18 21:02 Dose: 200 mls/hr Metronidazole (Flagyl 500mg/100ml Ns) 100 mls @ 100 mls/hr IVPB Q8@0400,1200, 2000 [facility] PRN Reason: Protocol Last Admin: 02/18/18 04:43 Dose: 100 mls/hr Levothyroxine Sodium (Synthroid) 88 mcg PO DAILY@0630 [facility] Last Admin: 02/18/18 06:10 Dose: 88 mcg Losartan Potassium (Cozaar) 25 mg PO DAILY [facility] Last Admin: 02/17/18 08:38 Dose: 25 mg Morphine Sulfate (Morphine) 4 mg IVP Q4H PRN PRN Reason: Pain, moderate (4-7) Last Admin: 02/17/18 19:31 Dose: 4 mg Ondansetron HCl (Zofran Odt) 4 mg PO Q4H PRN PRN Reason: Nausea/Vomiting Last Admin: 02/13/18 18:27 Dose: 4 mg Pravastatin Sodium (Pravachol) 40 mg PO DAILY [facility] Last Admin: 02/17/18 08:39 Dose: 40 mg - Labs Labs: 02/17/18 06:00 02/17/18 06:00 - Constitutional Appears: No Acute Distress - Head Exam Head Exam: NORMOCEPHALIC - Eye Exam Eye Exam: EOMI, Normal appearance - ENT Exam ENT Exam: Mucous Membranes Moist - Respiratory Exam Respiratory Exam: NORMAL BREATHING PATTERN - Cardiovascular Exam Cardiovascular Exam: +S1, +S2 - GI/Abdominal Exam GI & Abdominal Exam: Soft, Tenderness Additional comments: lower abdominal tenderness - Neurological Exam Neurological Exam: Alert, Awake, Oriented x3 - Psychiatric Exam Psychiatric exam: Normal Mood - Skin Skin Exam: Dry, Intact, Warm Assessment and Plan - Assessment and Plan (Free Text) Assessment: 57F w/ SBO- resolved CT scan demonstrated sigmoid diverticulosis w/ questionable wall thickening and new extensive and adjacent inflammatory changes as well as hyperemia of the sigmoid mesocolon, which may represent acute diverticulitis Plan: -Clear liquid diet -C/w Cipro/Flagyl -F/u Abdominal X-ray -Encourage ambulation, OOB to chair -DVT ppx -Further recs per Dr. Liza Hopson PGY2 <Anthony De Jesus - Last Filed: 02/18/18 17:11> Subjective - Date & Time of Evaluation Time of Evaluation: 17:00 - Subjective Subjective: Patient was seen and examined at the bedside. Agree with resident's note above. CT scan results noted. Objective - Vital Signs/Intake and Output Vital Signs (last 24 hours): Temp Pulse Resp BP Pulse Ox 97.9 F 91 H 18 105/71 98 02/18/18 16:18 02/18/18 16:18 02/18/18 16:18 02/18/18 16:18 02/18/18 16:18 - Medications Medications: Current Medications Acetaminophen (Tylenol 325mg Tab) 650 mg PO Q6 PRN PRN Reason: Fever >100.4 F Last Admin: 02/17/18 09:37 Dose: 650 mg Ciprofloxacin (Cipro 400mg/200ml Dsw) 400 mg in 200 mls @ 200 mls/hr IVPB Q12 [facility] PRN Reason: Protocol Last Admin: 02/18/18 09:39 Dose: 200 mls/hr Metronidazole (Flagyl 500mg/100ml Ns) 100 mls @ 100 mls/hr IVPB Q8@0400,1200, 2000 [facility] PRN Reason: Protocol Last Admin: 02/18/18 12:00 Dose: 100 mls/hr Levothyroxine Sodium (Synthroid) 88 mcg PO DAILY@0630 [facility] Last Admin: 02/18/18 06:10 Dose: 88 mcg Losartan Potassium (Cozaar) 25 mg PO DAILY [facility] Last Admin: 02/17/18 08:38 Dose: 25 mg Morphine Sulfate (Morphine) 4 mg IVP Q4H PRN PRN Reason: Pain, moderate (4-7) Last Admin: 02/17/18 19:31 Dose: 4 mg Ondansetron HCl (Zofran Odt) 4 mg PO Q4H PRN PRN Reason: Nausea/Vomiting Last Admin: 02/13/18 18:27 Dose: 4 mg Pravastatin Sodium (Pravachol) 40 mg PO DAILY [facility] Last Admin: 02/18/18 08:57 Dose: 40 mg - Labs Labs: 02/18/18 10:20 02/17/18 06:00 - GI/Abdominal Exam Additional comments: soft, mildly tender in the lower abdomen, ND, BS+, no rebound, no guarding, well healed scar from prior surgery Assessment and Plan - Assessment and Plan (Free Text) Plan: - repeat labs in am - Will follow
[2018-02-18] MEDS: Pravastatin Sodium 40 MG TAB PO SCH (08:57)
[2018-02-18] MEDS: Ciprofloxacin 400mg/200ml D5W 400 MG/200 ML BAG IVPB SCH ×2 (09:39→21:39)
--- NOTE | 2018-02-18 09:58 | RAD ---
HISTORY: f/u path of contrast COMPARISON: Correlations made to CT scan of the abdomen and pelvis 02/17/2018 FINDINGS: BOWEL: Progression of oral contrast to the rectum. BONES: Normal. OTHER FINDINGS: None. IMPRESSION: Progression of oral contrast in the rectum.
[2018-02-18 10:31] LABS: BASO % 0.2 % (0.0-2.0); EOS % 0.5 % (0.0-4.0); HEMOGLOBIN 11.7 g/dL (12.0-16.0); LYMPH % 19.9 % (20.0-40.0); MEAN CELL VOLUME 76.9 fl (81.0-99.0); MEAN CORPUSCULAR HEMOGLOBIN 25.7 pg (27.0-31.0); MEAN CORPUSCULAR HGB CONC 33.5 g/dL (33.0-37.0); MEAN PLATELET VOLUME 7.9 fl (7.2-11.7); MONO # 0.5 K/uL (0.0-0.8); MONO % 10.1 % (0.0-10.0); NEUT # 3.6 K/uL (1.8-7.0); NEUT % 69.3 % (50.0-75.0); NRBC % 0.1 % (0.0-0.0); RBC 4.56 Mil/uL (3.80-5.20); WHITE BLOOD COUNT 5.3 K/uL (4.8-10.8)
--- NOTE | 2018-02-18 12:12 | CP.PCM.PN ---
Subjective - Date & Time of Evaluation Date of Evaluation: 02/18/18 Time of Evaluation: 11:30 - Subjective Subjective: F/U SBO lower quadrants abdominal pain , on clear fluids Objective - Vital Signs/Intake and Output Vital Signs (last 24 hours): Temp Pulse Resp BP Pulse Ox 98.5 F 78 18 99/64 L 97 02/18/18 08:02 02/18/18 08:02 02/18/18 08:02 02/18/18 08:02 02/18/18 08:02 - Medications Medications: Current Medications Acetaminophen (Tylenol 325mg Tab) 650 mg PO Q6 PRN PRN Reason: Fever >100.4 F Last Admin: 02/17/18 09:37 Dose: 650 mg Ciprofloxacin (Cipro 400mg/200ml Dsw) 400 mg in 200 mls @ 200 mls/hr IVPB Q12 [facility] PRN Reason: Protocol Last Admin: 02/18/18 09:39 Dose: 200 mls/hr Metronidazole (Flagyl 500mg/100ml Ns) 100 mls @ 100 mls/hr IVPB Q8@0400,1200, 2000 [facility] PRN Reason: Protocol Last Admin: 02/18/18 04:43 Dose: 100 mls/hr Levothyroxine Sodium (Synthroid) 88 mcg PO DAILY@0630 [facility] Last Admin: 02/18/18 06:10 Dose: 88 mcg Losartan Potassium (Cozaar) 25 mg PO DAILY [facility] Last Admin: 02/17/18 08:38 Dose: 25 mg Morphine Sulfate (Morphine) 4 mg IVP Q4H PRN PRN Reason: Pain, moderate (4-7) Last Admin: 02/17/18 19:31 Dose: 4 mg Ondansetron HCl (Zofran Odt) 4 mg PO Q4H PRN PRN Reason: Nausea/Vomiting Last Admin: 02/13/18 18:27 Dose: 4 mg Pravastatin Sodium (Pravachol) 40 mg PO DAILY [facility] Last Admin: 02/18/18 08:57 Dose: 40 mg - Labs Labs: 02/18/18 10:20 02/17/18 06:00 - Constitutional Appears: No Acute Distress - Head Exam Head Exam: NORMAL INSPECTION - Eye Exam Eye Exam: PERRL - ENT Exam ENT Exam: Normal Exam - Neck Exam Neck Exam: Normal Inspection - Respiratory Exam Respiratory Exam: Clear to Ausculation Bilateral - Cardiovascular Exam Cardiovascular Exam: REGULAR RHYTHM - GI/Abdominal Exam GI & Abdominal Exam: Tenderness (R-L LQ) - Extremities Exam Extremities Exam: Normal Inspection - Back Exam Back Exam: NORMAL INSPECTION - Neurological Exam Neurological Exam: Alert, Oriented x3. absent: Motor Sensory Deficit - Psychiatric Exam Psychiatric exam: Anxious - Skin Skin Exam: Warm Assessment and Plan (1) SBO (small bowel obstruction) Status: Acute (2) Abdominal pain Status: Acute (3) Diverticulitis Status: Acute (4) Hypothyroidism Status: Chronic (5) HTN (hypertension) Status: Chronic (6) High cholesterol Status: Chronic - Assessment and Plan (Free Text) Plan: contijnue clear fluids , Cipro IV , Flagyl IV and rest of treatment
[2018-02-19] MEDS: metroNIDAZOLE 500mg/100ml NS 100 ML IVPB SCH ×2 (03:38→12:00)
[2018-02-19] MEDS: Levothyroxine 88 MCG TAB PO SCH (06:56)
--- NOTE | 2018-02-19 08:08 | CP.PCM.PN ---
<Elen Chambers - Last Filed: 02/19/18 08:01> Subjective - Date & Time of Evaluation Date of Evaluation: 02/19/18 Time of Evaluation: 08:01 - Subjective Subjective: Surgery Pt seen and examined. No acute events. Reports diarrhea. Pain controlled. + amb. + void. Tolerating diet. Objective - Vital Signs/Intake and Output Vital Signs (last 24 hours): Temp Pulse Resp BP Pulse Ox 98.1 F 82 18 103/67 98 02/18/18 23:45 02/18/18 23:45 02/18/18 23:45 02/18/18 23:45 02/18/18 23:45 - Medications Medications: Current Medications Acetaminophen (Tylenol 325mg Tab) 650 mg PO Q6 PRN PRN Reason: Fever >100.4 F Last Admin: 02/17/18 09:37 Dose: 650 mg Ciprofloxacin (Cipro 400mg/200ml Dsw) 400 mg in 200 mls @ 200 mls/hr IVPB Q12 [facility] PRN Reason: Protocol Last Admin: 02/18/18 21:39 Dose: 200 mls/hr Metronidazole (Flagyl 500mg/100ml Ns) 100 mls @ 100 mls/hr IVPB Q8@0400,1200, 2000 [facility] PRN Reason: Protocol Last Admin: 02/19/18 03:38 Dose: 100 mls/hr Levothyroxine Sodium (Synthroid) 88 mcg PO DAILY@0630 [facility] Last Admin: 02/19/18 06:56 Dose: 88 mcg Losartan Potassium (Cozaar) 25 mg PO DAILY [facility] Last Admin: 02/17/18 08:38 Dose: 25 mg Morphine Sulfate (Morphine) 4 mg IVP Q4H PRN PRN Reason: Pain, moderate (4-7) Last Admin: 02/17/18 19:31 Dose: 4 mg Ondansetron HCl (Zofran Odt) 4 mg PO Q4H PRN PRN Reason: Nausea/Vomiting Last Admin: 02/13/18 18:27 Dose: 4 mg Pravastatin Sodium (Pravachol) 40 mg PO DAILY [facility] Last Admin: 02/18/18 08:57 Dose: 40 mg - Labs Labs: 02/18/18 10:20 02/17/18 06:00 - Constitutional Appears: No Acute Distress - Head Exam Head Exam: ATRAUMATIC, NORMAL INSPECTION, NORMOCEPHALIC - Eye Exam Eye Exam: EOMI, Normal appearance, PERRL Pupil Exam: NORMAL ACCOMODATION, PERRL - ENT Exam ENT Exam: Mucous Membranes Moist, Normal Exam - Neck Exam Neck Exam: Full ROM, Normal Inspection. absent: Lymphadenopathy - Respiratory Exam Respiratory Exam: Clear to Ausculation Bilateral, NORMAL BREATHING PATTERN - Cardiovascular Exam Cardiovascular Exam: REGULAR RHYTHM, +S1, +S2. absent: Murmur - GI/Abdominal Exam GI & Abdominal Exam: Soft, Tenderness, Normal Bowel Sounds. absent: Distended, Firm, Guarding, Rigid Additional comments: well healed scar. Low abd TTP - Extremities Exam Extremities Exam: Full ROM, Normal Capillary Refill, Normal Inspection. absent : Joint Swelling, Pedal Edema - Back Exam Back Exam: NORMAL INSPECTION - Neurological Exam Neurological Exam: Alert, Awake, CN II-XII Intact, Normal Gait, Oriented x3 - Psychiatric Exam Psychiatric exam: Normal Affect, Normal Mood - Skin Skin Exam: Dry, Intact, Normal Color, Warm Assessment and Plan - Assessment and Plan (Free Text) Assessment: 7F w/ SBO- resolved CT scan demonstrated sigmoid diverticulosis w/ questionable wall thickening and new extensive and adjacent inflammatory changes as well as hyperemia of the sigmoid mesocolon, which may represent acute diverticulitis Plan: -Advance diet as tolerated. -C/w Cipro/Flagyl -Encourage ambulation, OOB to chair -DVT ppx -Further recs per Dr. De Jesus <Anthony De Jesus - Last Filed: 02/19/18 11:04> Subjective - Date & Time of Evaluation Time of Evaluation: 10:25 - Subjective Subjective: Patient was seen and examined at the bedside. Agree with resident's note above. Objective - Vital Signs/Intake and Output Vital Signs (last 24 hours): Temp Pulse Resp BP Pulse Ox 97.6 F 69 20 110/71 98 02/19/18 08:12 02/19/18 08:12 02/19/18 08:12 02/19/18 08:12 02/19/18 08:12 - Medications Medications: Current Medications Acetaminophen (Tylenol 325mg Tab) 650 mg PO Q6 PRN PRN Reason: Fever >100.4 F Last Admin: 02/17/18 09:37 Dose: 650 mg Ciprofloxacin (Cipro 400mg/200ml Dsw) 400 mg in 200 mls @ 200 mls/hr IVPB Q12 [facility] PRN Reason: Protocol Last Admin: 02/19/18 08:40 Dose: 200 mls/hr Metronidazole (Flagyl 500mg/100ml Ns) 100 mls @ 100 mls/hr IVPB Q8@0400,1200, 2000 [facility] PRN Reason: Protocol Last Admin: 02/19/18 03:38 Dose: 100 mls/hr Levothyroxine Sodium (Synthroid) 88 mcg PO DAILY@0630 [facility] Last Admin: 02/19/18 06:56 Dose: 88 mcg Losartan Potassium (Cozaar) 25 mg PO DAILY [facility] Last Admin: 02/17/18 08:38 Dose: 25 mg Morphine Sulfate (Morphine) 4 mg IVP Q4H PRN PRN Reason: Pain, moderate (4-7) Last Admin: 02/17/18 19:31 Dose: 4 mg Ondansetron HCl (Zofran Odt) 4 mg PO Q4H PRN PRN Reason: Nausea/Vomiting Last Admin: 02/13/18 18:27 Dose: 4 mg Pravastatin Sodium (Pravachol) 40 mg PO DAILY [facility] Last Admin: 02/19/18 08:42 Dose: 40 mg - Labs Labs: 02/18/18 10:20 02/17/18 06:00 - GI/Abdominal Exam Additional comments: soft, very mild lower abdominal tenderness, ND, BS+, no rebound, no guarding, well healed scar from prior surgery Assessment and Plan - Assessment and Plan (Free Text) Plan: - start low residue diet - Pain control - continue antibiotics - If tolerates diet, patient is clear for discharge home from general surgery stand point
[2018-02-19 08:12] VITALS: RESP 20
[2018-02-19] MEDS: Ciprofloxacin 400mg/200ml D5W 400 MG/200 ML BAG IVPB SCH (08:40)
[2018-02-19] MEDS: Pravastatin Sodium 40 MG TAB PO SCH (08:42)
--- NOTE | 2018-02-19 13:26 | CP.PCM.DIS ---
Provider - Provider Date of Admission: 02/13/18 02:02 Attending physician: Sal Salazar MD Diagnosis - Discharge Diagnosis (1) SBO (small bowel obstruction) Status: Acute Priority: High (2) Abdominal pain Status: Acute Priority: High (3) Diverticulitis Status: Acute (4) Hypothyroidism Status: Chronic Priority: Medium (5) HTN (hypertension) Status: Chronic Priority: Medium (6) High cholesterol Status: Chronic Priority: Medium Hospital Course - Lab Results Lab Results: Most Recent Lab Values WBC 5.3 K/uL (4.8-10.8) 02/18/18 10:20 RBC 4.56 Mil/uL (3.80-5.20) 02/18/18 10:20 Hgb 11.7 g/dL (12.0-16.0) L 02/18/18 10:20 Hct 35.0 % (34.0-47.0) 02/18/18 10:20 MCV 76.9 fl (81.0-99.0) L 02/18/18 10:20 MCH 25.7 pg (27.0-31.0) L 02/18/18 10:20 MCHC 33.5 g/dL (33.0-37.0) 02/18/18 10:20 RDW 14.0 % (11.5-14.5) 02/18/18 10:20 Plt Count 293 K/uL (130-400) 02/18/18 10:20 MPV 7.9 fl (7.2-11.7) 02/18/18 10:20 Neut % (Auto) 69.3 % (50.0-75.0) 02/18/18 10:20 Lymph % (Auto) 19.9 % (20.0-40.0) L 02/18/18 10:20 [place] % (Auto) 10.1 % (0.0-10.0) H 02/18/18 10:20 Eos % (Auto) 0.5 % (0.0-4.0) 02/18/18 10:20 Baso % (Auto) 0.2 % (0.0-2.0) 02/18/18 10:20 Neut # (Auto) 3.6 K/uL (1.8-7.0) 02/18/18 10:20 Lymph # (Auto) 1.0 K/uL (1.0-4.3) 02/18/18 10:20 Childress # (Auto) 0.5 K/uL (0.0-0.8) 02/18/18 10:20 Eos # (Auto) 0.0 K/uL (0.0-0.7) 02/18/18 10:20 Baso # (Auto) 0.0 K/uL (0.0-0.2) 02/18/18 10:20 Neutrophils % (Manual) 89 % (42-75) H 02/13/18 06:00 Band Neutrophils % 3 % (0-2) H 02/13/18 06:00 Lymphocytes % (Manual) 5 % (20-50) L 02/13/18 06:00 Reactive Lymphs % 3 % (0-0) H 02/13/18 06:00 Monocytes % (Manual) TEST NOT PERFORMED 02/13/18 06:00 Platelet Estimate Normal (NORMAL) 02/13/18 06:00 Hypochromasia (manual) Slight 02/13/18 06:00 Stomatocytes Slight 02/13/18 06:00 Sodium 138 mmol/l (132-148) 02/17/18 06:00 Potassium 3.7 MMOL/L (3.6-5.0) 02/17/18 06:00 Chloride 101 mmol/L (98-107) 02/17/18 06:00 Carbon Dioxide 25 mmol/L (22-30) 02/17/18 06:00 Anion Gap 16 (10-20) 02/17/18 06:00 BUN 9 mg/dl (7-17) 02/17/18 06:00 Creatinine 0.6 mg/dl (0.7-1.2) L 02/17/18 06:00 Est GFR ( Amer) > 60 02/17/18 06:00 Est GFR (Non-Af Amer) > 60 02/17/18 06:00 Random Glucose 104 mg/dL (65-105) 02/17/18 06:00 Lactic Acid 2.4 MMOL/L (0.7-2.1) H 02/13/18 12:05 Calcium 8.7 mg/dL (8.4-10.2) 02/17/18 06:00 Total Bilirubin 1.5 mg/dl (0.2-1.3) H 02/17/18 06:00 AST 35 U/L (14-36) 02/17/18 06:00 ALT 39 U/L (9-52) 02/17/18 06:00 Alkaline Phosphatase 56 U/L (38-126) 02/17/18 06:00 Total Protein 6.9 G/DL (6.3-8.2) 02/17/18 06:00 Albumin 3.5 g/dL (3.5-5.0) 02/17/18 06:00 Globulin 3.4 gm/dL (2.2-3.9) 02/17/18 06:00 Albumin/Globulin Ratio 1.0 (1.0-2.1) 02/17/18 06:00 Lipase 60 U/L (23-300) 02/12/18 21:00 Discharge Exam - Head Exam Head Exam: ATRAUMATIC, NORMAL INSPECTION, NORMOCEPHALIC Discharge Plan - Discharge Medications Prescriptions: Ciprofloxacin [Cipro] 500 mg PO BID #20 tab Metronidazole [Flagyl] 500 mg PO TID #30 tablet - Follow Up Plan Condition: FAIR Disposition: HOME/ ROUTINE Instructions: Low Fiber Diet, Diverticulitis (DC) Additional Instructions: follow up with your primary MD 7-10 days Referrals: Patsy Grubbs MD [Family Provider] - Anthony De Jesus MD [Staff Provider] -
[2018-02-19 16:25] VITALS: BP 129/79; PULSE 80; TEMP 97.8; O2SAT 99
== END 2018-02-19 18:40 | disposition home or self-care (01) | DRG 180 ==
LOC: H.ER 19:16 → H.ERHOLD 02-13 02:02 → H.MEDSURG1 02-13 04:00
PROVIDERS: ADMIT Internal Medicine Pulmonary Disease; ATTEND Internal Medicine Pulmonary Disease
PROC: 3E0234Z Introduction of Serum, Toxoid and Vaccine into Muscle, Percutaneous Approach (ICD-10-PCS; principal; 2018-02-13)
DX: K56.50 Intestinal adhesions [bands], unspecified as to partial versus complete obstruction (principal); E87.6 Hypokalemia; K57.30 Diverticulosis of large intestine without perforation or abscess without bleeding; E03.9 Hypothyroidism, unspecified; E78.5 Hyperlipidemia, unspecified; E78.00 Pure hypercholesterolemia, unspecified; D64.9 Anemia, unspecified; I10 Essential (primary) hypertension; Z23 Encounter for immunization; Z90.710 Acquired absence of both cervix and uterus